=== PATIENT | female | born 1935 | race Caucasian/White ===

== ENCOUNTER 2018-11-14 21:31 | Emergency (ER) | payer MEDICARE ==
[~2018-11-14] VITALS: Ht 152.4 cm; Wt 59.9 kg
[~2018-11-14 21:31] MED LIST: EZET10; GABA100 PO; HYDACE5; HYDACE5325 PO; [UNRECOGNIZED DRUG - REMARK]
[2018-11-14] MEDS ORDERED: MELO7.5 PO (21:39)
[2018-11-14 22:06] LABS: BASOPHILS ABSOLUTE AUTO 0.01 K/mm3 (0.00-0.23); BASOPHILS PERCENT AUTO 0 % (0-2); EOSINOPHILS ABSOLUTE AUTO 0.07 K/mm3 (0.00-0.68); EOSINOPHILS PERCENT AUTO 1 % (0-6); Hematocrit 38.9 % (33.0-51.0); IMMATURE GRAN PERCENT AUTO 0 % (0-1); LYMPHOCYTES ABSOLUTE AUTO 2.08 K/mm3 (0.84-5.20); LYMPHOCYTES PERCENT AUTO 41 % (21-46); MONOCYTES ABSOLUTE AUTO 0.59 K/mm3 (0.16-1.47); MONOCYTES PERCENT AUTO 12 % (4-13); Mean Corpuscular HGB 27.6 pg (26.0-34.0); Mean Corpuscular HGB Conc 30.8 g/dL (31.5-36.5); Mean Corpuscular Volume 90 fL (80-100); Mean Platelet Volume 10.8 fL (9.1-12.4); NEUTROPHILS ABSOLUTE AUTO 2.35 K/mm3 (1.96-9.15); NEUTROPHILS PERCENT AUTO 46 % (41-73); Platelet Count 191 K/mm3 (150-400); RDW Coefficient Variation 18.1 % (11.7-14.2); RDW Standard Deviation 59.8 fL (35.1-46.3); Red Blood Cell Count 4.34 M/mm3 (3.80-5.20)
[2018-11-14 22:24] LABS: Alanine Aminotransfer (ALT/SGP 21 U/L (12-78); Albumin, Blood 3.4 g/dL (3.4-5.0); Albumin/Globulin Ratio 1.1 (0.8-1.8); Alk Phos 118 U/L (50-136); Anion Gap 6 mmol/L (6-16); Aspartate Aminotrans (AST/SGOT 17 U/L (12-37); Bilirubin, Total 0.5 mg/dL (0.1-1.0); Blood Urea Nitrogen 21 mg/dL (8-24); Bun/Creatinine Ratio 39.3 (12.0-20.0); CO2, Blood 26 mmol/L (21-32); Calcium, Blood 8.9 mg/dL (8.5-10.1); Chloride, Blood 110 mmol/L (98-108); Creatinine, Blood 0.54 mg/dL (0.40-1.00); Glomerular Filtration Rate >60 (60-); Glucose, Blood 91 mg/dL (70-99); Potassium, Blood 4.2 mmol/L (3.5-5.5); Sodium, Blood 142 mmol/L (136-145); Total Protein, Blood 6.4 g/dL (6.4-8.2)
[2018-11-14 22:41] LABS: Source, Urine Clean Catch
[2018-11-14 22:43] LABS: Bilirubin, Urine Neg (Neg); Blood, Urine 1+ (Neg); Glucose Qualitative, Urine Neg (Neg); Ketones, Urine Neg (Neg); Leukocyte Esterase, Urine 3+ (Neg); Nitrite, Urine Neg (Neg); Protein, Urine Neg (Neg); Specific Gravity, Urine 1.015 (1.003-1.022); Urobilinogen, Urine NORM (Normal); pH, Urine 6.5 (5.0-8.0)
[2018-11-14 22:44] LABS: Appearance, Urine Clear (Clear); Color, Urine Yellow (P-Yellow)
[2018-11-14 22:50] LABS: Red Blood Cells, Urine 0-2 /hpf (0-2); Squamous Epithelial Cells Rare /hpf (Few)
[2018-11-14 22:51] LABS: Bacteria Mod /hpf
[2018-11-14] MEDS ORDERED: CEPH500 PO (23:54)
== END 2018-11-15 00:05 | disposition home or self-care (01) ==
LOC: ER 21:31
PROVIDERS: Physician Assistant
DX: N39.0 Urinary tract infection, site not specified (principal); E87.8 Other disorders of electrolyte and fluid balance, not elsewhere classified; Z88.5 Allergy status to narcotic agent; Z88.8 Allergy status to other drugs, medicaments and biological substances; Z79.899 Other long term (current) drug therapy
CPT/HCPCS: 36415; 80053; 81001; 84484; 85025; 87086; 93005; 93010; 99284-25

== ENCOUNTER 2018-12-06 21:49 | Emergency (ER) | payer MEDICARE ==
[~2018-12-06] VITALS: Ht 152.4 cm; Wt 59.0 kg
[~2018-12-06 21:49] MED LIST changes: +CEPH500 PO; +MELO7.5 PO
[2018-12-06] MEDS ORDERED: HYDR1TAB94 PO (23:54)
[2018-12-07] MEDS ORDERED: CEPH500 PO (00:30)
== END 2018-12-07 00:44 | disposition home or self-care (01) ==
LOC: ER 21:49
DX: S01.81XA Laceration without foreign body of other part of head, initial encounter (principal); S60.221A Contusion of right hand, initial encounter; W18.30XA Fall on same level, unspecified, initial encounter; Z88.5 Allergy status to narcotic agent; Z88.8 Allergy status to other drugs, medicaments and biological substances
CPT/HCPCS: 73110; 90471; 90714; 99283-25; A9270; A9270-GY

== ENCOUNTER → 2019-01-16 | Outpatient (CLI) | payer MEDICARE ==
[~2019-01-16] MED LIST changes: +HYDR1TAB94 PO
[2019-01-18 13:37] LABS: Stool Occult Bld Immuno 1 Negative (NEGATIVE); Stool Occult Bld Immuno 2 Negative (NEGATIVE)
== END | disposition home or self-care (01) ==
LOC: LAB SHORT 08:45 → LAB 08:45 → OLS 08:45
PROVIDERS: Internal Medicine Gastroenterology
DX: D50.9 Iron deficiency anemia, unspecified (principal)
CPT/HCPCS: 82274

== ENCOUNTER 2019-01-24 15:56 | Observation (INO) | payer MEDICARE ==
[~2019-01-24] VITALS: Ht 152.4 cm; Wt 60.0 kg
[2019-01-24 16:55] LABS: BASOPHILS ABSOLUTE AUTO 0.01 K/mm3 (0.00-0.23); BASOPHILS PERCENT AUTO 0 % (0-2); EOSINOPHILS ABSOLUTE AUTO 0.09 K/mm3 (0.00-0.68); EOSINOPHILS PERCENT AUTO 2 % (0-6); Hematocrit 41.7 % (33.0-51.0); Hemoglobin 13.1 g/dL (11.5-16.0); IMMATURE GRAN ABSOLUTE AUTO 0.01 K/mm3 (0.00-0.10); IMMATURE GRAN PERCENT AUTO 0 % (0-1); LYMPHOCYTES ABSOLUTE AUTO 2.05 K/mm3 (0.84-5.20); LYMPHOCYTES PERCENT AUTO 38 % (21-46); MONOCYTES ABSOLUTE AUTO 0.44 K/mm3 (0.16-1.47); MONOCYTES PERCENT AUTO 8 % (4-13); Mean Corpuscular HGB 29.4 pg (26.0-34.0); Mean Corpuscular HGB Conc 31.4 g/dL (31.5-36.5); Mean Corpuscular Volume 94 fL (80-100); NEUTROPHILS PERCENT AUTO 52 % (41-73); Platelet Count 208 K/mm3 (150-400); RDW Coefficient Variation 14.9 % (11.7-14.2); RDW Standard Deviation 51.4 fL (35.1-46.3); Red Blood Cell Count 4.46 M/mm3 (3.80-5.20)
[2019-01-24 17:20] LABS: Troponin I <0.015 ng/mL (0.000-0.040)
[2019-01-24 17:27] LABS: Alanine Aminotransfer (ALT/SGP 21 U/L (12-78); Albumin, Blood 3.3 g/dL (3.4-5.0); Albumin/Globulin Ratio 1.1 (0.8-1.8); Alk Phos 117 U/L (50-136); Anion Gap 5 mmol/L (6-16); Aspartate Aminotrans (AST/SGOT 18 U/L (12-37); Bilirubin, Total 0.5 mg/dL (0.1-1.0); Blood Urea Nitrogen 24 mg/dL (8-24); Bun/Creatinine Ratio 36.5 (12.0-20.0); CO2, Blood 25 mmol/L (21-32); Calcium, Blood 9.1 mg/dL (8.5-10.1); Chloride, Blood 110 mmol/L (98-108); Creatinine, Blood 0.66 mg/dL (0.40-1.00); Globulin, Blood 2.9 g/dL (2.2-4.0); Glomerular Filtration Rate >60 (60-); Glucose, Blood 87 mg/dL (70-99); Potassium, Blood 4.3 mmol/L (3.5-5.5); Sodium, Blood 140 mmol/L (136-145); Total Protein, Blood 6.2 g/dL (6.4-8.2)
[2019-01-24] MEDS ORDERED: ADVIL LIQUI-GE200 MG PO (20:18)
[2019-01-24] MEDS ORDERED: ACET500 PO (20:27)
[2019-01-24] MEDS ORDERED: ASPI325EC PO (20:28)
[2019-01-24] MEDS ORDERED: D3-20002000 UNIT PO (21:37)
[2019-01-24] MEDS ORDERED: WOMEN'S 50 PLU1 EACH PO (21:40)
[2019-01-24] MEDS ORDERED: CURAMIN (21:40)
--- NOTE | 2019-01-24 23:22 | NUR ---
ARRIVAL NOTE PT ARRIVED TO UNIT VIA W.C, TRANSFERS INDEPENDENTLY TO BED. STEADY GAIT. DENIES CP AT THIS TIME. TELE PLACED ON PT, NSR @ 72 BPM. PT IS A&OX4, ORIENTED PT TO CALL LT AND ROOM. ADMISSION COMPLETE. SCDs IN PLACE. RESTING IN BED AT THIS TIME.
--- NOTE | 2019-01-25 05:28 | NUR ---
SHIFT SUMMARY NO CHEST PAIN OR DISCOMFORT OVERNIGHT. TELE IN PLACE, NSR IN THE 70s. PT AMBULATED INDEPENDENTLY IN ROOM, STEADY GAIT. USING HOME CPAP AT NIGHT, OTHERWISE TOLERATING RA. TRACE EDEMA TO BLE. PT TO HAVE ECHO LATER TODAY. C/O HIP PAIN, 650 MG PO TYLENOL ADMINISTERED AND PROVIDES RELIEF. WILL CONT TO MONITOR AND PROVIDE CARE UNTIL PRESUMED BY ONCOMING RN.
--- NOTE | 2019-01-25 16:53 | NUR ---
Shift Summary A/Ox4. Pleasant and cooperative lady, she has been independent in room and up to the bathroom. Calls appropriately. Pt is scheduled to have R/L heart cath tomorrow (01/26) and is to be NPO after midnight per Dr. Crystal, will pass onto receiving nurse. No other concerns at this time.
--- NOTE | 2019-01-26 05:40 | NUR ---
SHIFT SUMMARY NO ACUTE EVENTS OVERNIGHT. PT NPO SINCE MA FOR R+L HEART CATH PROCEDURE TODAY. PT INDEPENDENT IN RM. TELE IN PLACE; NO EVENTS; NSR @ 69 BPM PER O AND M SUPERVISOR. PT WEARING HOME CPAP T/O NIGHT. NO CP OR DISCOMFORT. WILL CONT TO MONITOR AND PROVIDE CARE UNTIL PRESUMED BY ONCOMING RN.
--- NOTE | 2019-01-26 06:52 | NUR ---
TRANSFER TO HEART CENTER PT TO HEART CENTER VIA W/C WITH RNs FOR HEART CATH PROCEDURE. NPO SINCE MN. PT BELONGINGS TAKEN WITH PT.
[2019-01-26] MEDS ORDERED: ASPI81CH PO (08:27)
--- NOTE | 2019-01-26 12:13 | NUR ---
PT DRESSED, IV DC'D INTACT, TR BAND REMOVED, DRESSING PLACED ALONG W R WRIST SPLINT. PT PREFERS NOT TO HAVE ARM SLING. DC'D BY WC BY THIS RN, SON DRIVING PT HOME. VSS
== END 2019-01-26 12:15 | disposition home or self-care (01) ==
LOC: ER 15:56 → MEDS 15:57 → SURS 21:22 → MEDS 21:29 → SURS 01-26 09:42
PROVIDERS: Physician Assistant; ADMIT Family Medicine
PROC: 4A023N8 Measurement of Cardiac Sampling and Pressure, Bilateral, Percutaneous Approach (ICD-10-PCS; principal; 2019-01-26)
PROC: B2111ZZ Fluoroscopy of Multiple Coronary Arteries using Low Osmolar Contrast (ICD-10-PCS; principal; 2019-01-26)
DX: R07.9 Chest pain, unspecified (principal); I25.10 Atherosclerotic heart disease of native coronary artery without angina pectoris; I35.0 Nonrheumatic aortic (valve) stenosis; I35.1 Nonrheumatic aortic (valve) insufficiency; I10 Essential (primary) hypertension; M19.90 Unspecified osteoarthritis, unspecified site; G89.29 Other chronic pain; D68.0 Von Willebrand disease; M25.561 Pain in right knee; M79.606 Pain in leg, unspecified; Z90.710 Acquired absence of both cervix and uterus; Z88.5 Allergy status to narcotic agent; Z88.8 Allergy status to other drugs, medicaments and biological substances; Z79.1 Long term (current) use of non-steroidal anti-inflammatories (NSAID); Z79.82 Long term (current) use of aspirin; Z79.899 Other long term (current) drug therapy
CPT/HCPCS: 36415; 71046; 80053; 83880; 84484; 85025; 93005; 93010; 93306; 93454; 99152; 99285-25; A9270; C1769; C1894; J1644; J2250; J3010; J7030; Q9967

== ENCOUNTER 2019-10-11 13:15 | Emergency (ER) | payer MEDICARE ==
[~2019-10-11] VITALS: Ht 152.4 cm; Wt 59.0 kg
[~2019-10-11 13:15] MED LIST changes: +ACET500 PO; +ADVIL LIQUI-GE200 MG PO; +ASPI325EC PO; +Aspirin EC81 MG PO; +CURAMIN; +MULTI VITAMIN1 EACH PO; +VITAMIN D31000 UNI1 PO
[2019-10-11 14:28] LABS: BASOPHILS ABSOLUTE AUTO 0.01 K/mm3 (0.00-0.23); BASOPHILS PERCENT AUTO 0 % (0-2); EOSINOPHILS ABSOLUTE AUTO 0.05 K/mm3 (0.00-0.68); EOSINOPHILS PERCENT AUTO 1 % (0-6); Hematocrit 36.7 % (33.0-51.0); Hemoglobin 11.1 g/dL (11.5-16.0); IMMATURE GRAN ABSOLUTE AUTO 0.02 K/mm3 (0.00-0.10); IMMATURE GRAN PERCENT AUTO 0 % (0-1); LYMPHOCYTES ABSOLUTE AUTO 1.41 K/mm3 (0.84-5.20); LYMPHOCYTES PERCENT AUTO 19 % (21-46); MONOCYTES ABSOLUTE AUTO 0.73 K/mm3 (0.16-1.47); MONOCYTES PERCENT AUTO 10 % (4-13); Mean Corpuscular HGB 28.1 pg (26.0-34.0); Mean Corpuscular HGB Conc 30.2 g/dL (31.5-36.5); Mean Corpuscular Volume 93 fL (80-100); NEUTROPHILS ABSOLUTE AUTO 5.15 K/mm3 (1.96-9.15); NEUTROPHILS PERCENT AUTO 70 % (41-73); Platelet Count 241 K/mm3 (150-400); RDW Coefficient Variation 13.9 % (11.7-14.2); RDW Standard Deviation 47.6 fL (35.1-46.3); Red Blood Cell Count 3.95 M/mm3 (3.80-5.20); White Blood Cell Count 7.37 K/mm3 (4.00-11.30)
[2019-10-11 14:56] LABS: Alanine Aminotransfer (ALT/SGP 21 U/L (12-78); Albumin, Blood 3.3 g/dL (3.4-5.0); Alk Phos 111 U/L (50-136); Anion Gap 5 mmol/L (6-16); Aspartate Aminotrans (AST/SGOT 17 U/L (12-37); Bilirubin, Total 0.8 mg/dL (0.1-1.0); Blood Urea Nitrogen 20 mg/dL (8-24); Bun/Creatinine Ratio 25.9 (12.0-20.0); CO2, Blood 26 mmol/L (21-32); Calcium, Blood 8.8 mg/dL (8.5-10.1); Chloride, Blood 108 mmol/L (98-108); Creatinine, Blood 0.77 mg/dL (0.40-1.00); Globulin, Blood 3.2 g/dL (2.2-4.0); Glomerular Filtration Rate >60 (60-); Glucose, Blood 92 mg/dL (70-99); Potassium, Blood 4.2 mmol/L (3.5-5.5); Sodium, Blood 139 mmol/L (136-145); Total Protein, Blood 6.5 g/dL (6.4-8.2); Troponin I <0.015 ng/mL (0.000-0.040)
[2019-10-11] MEDS ORDERED: AMIODARONE HCL200 MG PO (15:40)
[2019-10-11] MEDS ORDERED: FUROSEMIDE20 MG PO (15:40)
[2019-10-11] MEDS ORDERED: PLAVIX75 MG PO (15:40)
[2019-10-11] MEDS ORDERED: ATORVASTATIN CA20 MG PO (15:40)
[2019-10-11] MEDS ORDERED: METOPROLOL SUCC25 MG PO (15:40)
== END 2019-10-11 16:46 | disposition home or self-care (01) ==
LOC: ER 13:15
PROVIDERS: Emergency Medicine
DX: G89.18 Other acute postprocedural pain (principal); R07.9 Chest pain, unspecified; Z88.5 Allergy status to narcotic agent; Z88.8 Allergy status to other drugs, medicaments and biological substances; Z79.82 Long term (current) use of aspirin; Z79.899 Other long term (current) drug therapy; Z95.2 Presence of prosthetic heart valve
CPT/HCPCS: 36415; 71046; 80053; 83880; 84484; 85025; 86900; 86901; 93005; 93010; 99284-25

== ENCOUNTER → 2019-12-21 | Outpatient (CLI) | payer MEDICARE ==
[~2019-12-21] MED LIST changes: +AMIODARONE HCL200 MG PO; +ATORVASTATIN CA20 MG PO; +FUROSEMIDE20 MG PO; +METOPROLOL SUCC25 MG PO; +PLAVIX75 MG PO
[2019-12-22 14:08] LABS: Stool Occult Bld Immuno 1 Negative (NEGATIVE); Stool Occult Bld Immuno 2 Negative (NEGATIVE)
== END | disposition home or self-care (01) ==
LOC: LAB SHORT 09:00 → LAB 09:00
PROVIDERS: Internal Medicine Gastroenterology
DX: R10.12 Left upper quadrant pain (principal)
CPT/HCPCS: G0328

== ENCOUNTER 2020-09-04 13:42 | Day surgery (SDC) | payer MEDICARE ==
[~2020-09-04] VITALS: Ht 149.9 cm; Wt 58.7 kg
[~2020-09-04 13:42] MED LIST changes: +ASCO500 PO; +CLOP75 PO; +CURAMIN PO; +Crestor20 MG PO; +Diovan40 MG PO; +FERROUS GLUCON324 M7 PO; +LEVSOD25 PO; +NITR.4SL SL; +SUPER LYSINE PO; +TRAM50 PO; +VITAMIN B125000 MC1 PO; +VITAMIN D310 MC4 PO; +VITAMIN E PO; +Voltaren100 GM TOP; +ZENPEP DR 20,01 EACH PO; +ZINC15 PO; +[UNRECOGNIZED DRUG - OTHER] PO; +[UNRECOGNIZED DRUG - REMARK] TOP
--- NOTE | 2020-09-04 14:17 | NUR ---
09/04/20 1417 Emelyn Degroot FIRST ATTEMPT MISSED BY RN IN THE RIGHT FOREARM. SECOND ATTEMPT SUCCESSFUL IN THE RIGHT HAND BY RN. PT TOW. PATIENT TOLERATED THE SUTAB PREP.
== END 2020-09-04 15:35 | disposition home or self-care (01) ==
LOC: ORSCSDS 13:42
PROVIDERS: Internal Medicine Gastroenterology
PROC: 0DBH8ZX Excision of Cecum, Via Natural or Artificial Opening Endoscopic, Diagnostic (ICD-10-PCS; principal; 2020-09-04 14:45)
PROC: 0DBM8ZX Excision of Descending Colon, Via Natural or Artificial Opening Endoscopic, Diagnostic (ICD-10-PCS; principal; 2020-09-04 14:45)
DX: K62.5 Hemorrhage of anus and rectum (principal); D12.0 Benign neoplasm of cecum; D12.4 Benign neoplasm of descending colon; K57.30 Diverticulosis of large intestine without perforation or abscess without bleeding; K64.8 Other hemorrhoids; G47.33 Obstructive sleep apnea (adult) (pediatric); I25.10 Atherosclerotic heart disease of native coronary artery without angina pectoris; Z79.899 Other long term (current) drug therapy; Z79.82 Long term (current) use of aspirin; Z79.02 Long term (current) use of antithrombotics/antiplatelets
CPT/HCPCS: 88305; J2704; J7120

== ENCOUNTER 2020-10-03 00:59 | Day surgery (SDC) | payer MEDICARE ==
[~2020-10-03] VITALS: Wt 59.6 kg
[2020-10-03] MEDS ORDERED: ALEN10 PO (12:34)
[2020-10-03] MEDS ORDERED: TRAM50 PO (12:39)
[2020-10-03] MEDS ORDERED: CLOP75 PO (12:40)
== END 2020-10-03 10:20 | disposition home or self-care (01) ==
LOC: ATC 00:59
DX: D64.9 Anemia, unspecified (principal); I10 Essential (primary) hypertension; I25.10 Atherosclerotic heart disease of native coronary artery without angina pectoris; I35.0 Nonrheumatic aortic (valve) stenosis; I48.91 Unspecified atrial fibrillation; M81.0 Age-related osteoporosis without current pathological fracture; E78.00 Pure hypercholesterolemia, unspecified; Z79.82 Long term (current) use of aspirin; Z88.5 Allergy status to narcotic agent; Z88.8 Allergy status to other drugs, medicaments and biological substances; Z79.02 Long term (current) use of antithrombotics/antiplatelets
CPT/HCPCS: 96365; J2916

== ENCOUNTER 2020-10-10 02:05 | Day surgery (SDC) | payer MEDICARE ==
[~2020-10-10 02:05] MED LIST changes: +ALEN10 PO
== END 2020-10-10 10:50 | disposition home or self-care (01) ==
LOC: ATC 02:05
DX: D64.9 Anemia, unspecified (principal); I10 Essential (primary) hypertension; I25.10 Atherosclerotic heart disease of native coronary artery without angina pectoris; I48.91 Unspecified atrial fibrillation; G57.01 Lesion of sciatic nerve, right lower limb; Z95.2 Presence of prosthetic heart valve; Z96.652 Presence of left artificial knee joint; Z79.82 Long term (current) use of aspirin; Z79.02 Long term (current) use of antithrombotics/antiplatelets
CPT/HCPCS: 96365; J2916

== ENCOUNTER 2020-10-22 01:36 | Day surgery (SDC) | payer MEDICARE | END 2020-10-22 12:10 | disposition home or self-care (01) | LOC: ATC 01:36 | DX: D64.9 Anemia, unspecified (principal); I10 Essential (primary) hypertension; I25.10 Atherosclerotic heart disease of native coronary artery without angina pectoris; I48.91 Unspecified atrial fibrillation; M17.11 Unilateral primary osteoarthritis, right knee; Z96.652 Presence of left artificial knee joint; Z79.82 Long term (current) use of aspirin; Z95.2 Presence of prosthetic heart valve; Z79.02 Long term (current) use of antithrombotics/antiplatelets | CPT/HCPCS: 96365; J2916 ==

== ENCOUNTER 2020-11-08 02:09 | Day surgery (SDC) | payer MEDICARE | END 2020-11-08 11:55 | disposition home or self-care (01) | LOC: ATC 02:09 | DX: D64.9 Anemia, unspecified (principal); I10 Essential (primary) hypertension; I25.10 Atherosclerotic heart disease of native coronary artery without angina pectoris; J45.909 Unspecified asthma, uncomplicated; Z88.5 Allergy status to narcotic agent | CPT/HCPCS: 96365; J2916 ==

== ENCOUNTER 2020-11-14 01:21 | Day surgery (SDC) | payer MEDICARE | END 2020-11-14 12:09 | disposition home or self-care (01) | LOC: ATC 01:21 | DX: D64.9 Anemia, unspecified (principal); I10 Essential (primary) hypertension; I25.10 Atherosclerotic heart disease of native coronary artery without angina pectoris; I48.91 Unspecified atrial fibrillation; M17.11 Unilateral primary osteoarthritis, right knee; M81.0 Age-related osteoporosis without current pathological fracture; G25.81 Restless legs syndrome; Z79.82 Long term (current) use of aspirin; Z88.6 Allergy status to analgesic agent; Z88.5 Allergy status to narcotic agent; Z79.02 Long term (current) use of antithrombotics/antiplatelets; Z95.2 Presence of prosthetic heart valve | CPT/HCPCS: 96365; J2916 ==

== ENCOUNTER 2020-11-21 01:27 | Day surgery (SDC) | payer MEDICARE | END 2020-11-21 11:50 | disposition home or self-care (01) | LOC: ATC 01:27 | DX: D64.9 Anemia, unspecified (principal) | CPT/HCPCS: 96365; J2916 ==

== ENCOUNTER 2021-05-14 08:44 | Day surgery (SDC) | payer MEDICARE ==
[~2021-05-14] VITALS: Ht 147.3 cm; Wt 60.0 kg
[~2021-05-14 08:44] MED LIST changes: +COMPOUNDING TOP
[2021-05-14] MEDS ORDERED: LEVOTHYROXINE PO (09:24)
[2021-05-14] MEDS ORDERED: FURO20 PO (09:25)
--- NOTE | 2021-05-14 10:07 | NUR ---
PT ARRIVED WITH SON WENDI REYNOLDS. HE LEFT WHEN PT STARTED CHANGING. PT VERY PLEASANT. Patient up to Ambulate independently. Gait A BIT UNSTEADY, RN AT SIDE. History, Chart, Medications and Allergies reviewed before start of procedure. Lungs clear T/O to Auscultation. Patient confirms NPO status and agrees with scheduled surgery. Pre-Op teaching done. Pt verbalizes understanding.
--- NOTE | 2021-05-14 17:20 | NUR ---
POST OP: REPORT RECEIVED FROM AMBER, HYDROELECTRIC OPERATOR. PT TO ROOM AT ABOUT 1415. PT IS A/O, HTN NOTED, OTHERWISE VSS. PT REPORTS PAIN 5/10 AND RISING. MEDICATED PER EMAR. SURGICAL SITE WNL. WILL CTM
--- NOTE | 2021-05-14 17:24 | NUR ---
SUMMARY: NO ACUTE CHANGE SINCE POST OP. VSS, PT REPORTS PAIN IS BETTER AND MANAGED WITH 10MG OXYCODONE. PT HOME CPAP SET UP AT BEDSIDE, SEE ORDERS. PT ABLE TO WALK TO ROOM DOOR AND BACK WITH THERAPY. WAS A LITTLE NAUSEATED WITH MOVEMENT AND GIVEN ZOFRAN. NO SAFETY CONCERNS CURRENTLY, PT NOW RECLINED IN CHAIR WITH POLAR PAC AND KNEE ELEVATED. WILL CTM AND REPORT TO MAUREEN TANG.
[2021-05-15 04:31] LABS: BASOPHILS ABSOLUTE AUTO 0.01 K/mm3 (0.00-0.23); BASOPHILS PERCENT AUTO 0 % (0-2); EOSINOPHILS ABSOLUTE AUTO 0.01 K/mm3 (0.00-0.68); EOSINOPHILS PERCENT AUTO 0 % (0-6); Hematocrit 37.5 % (33.0-51.0); Hemoglobin 11.8 g/dL (11.5-16.0); IMMATURE GRAN ABSOLUTE AUTO 0.04 K/mm3 (0.00-0.10); IMMATURE GRAN PERCENT AUTO 1 % (0-1); LYMPHOCYTES ABSOLUTE AUTO 1.32 K/mm3 (0.84-5.20); LYMPHOCYTES PERCENT AUTO 16 % (21-46); MONOCYTES ABSOLUTE AUTO 0.75 K/mm3 (0.16-1.47); MONOCYTES PERCENT AUTO 9 % (4-13); Mean Corpuscular HGB 30.2 pg (26.0-34.0); Mean Corpuscular HGB Conc 31.5 g/dL (31.5-36.5); Mean Corpuscular Volume 96 fL (80-100); Mean Platelet Volume 11.3 fL (9.1-12.4); NEUTROPHILS ABSOLUTE AUTO 6.26 K/mm3 (1.96-9.15); NEUTROPHILS PERCENT AUTO 75 % (41-73); Platelet Count 129 K/mm3 (150-400); RDW Coefficient Variation 14.4 % (11.7-14.2); RDW Standard Deviation 50.1 fL (35.1-46.3); Red Blood Cell Count 3.91 M/mm3 (3.80-5.20); White Blood Cell Count 8.39 K/mm3 (4.00-11.30)
--- NOTE | 2021-05-15 04:35 | NUR ---
BRACELET AND BROOCH MAKER SUMMARY PT AAOX4 AND PLEASANT. HAS AMBULATED WITH FWW AND MINIMAL ASSIST TO THE BATHROOM MULTIPLE TIMES TONIGHT. FULL SENSATION IN BLE, DENIES N/T. MEDICATED FOR PAIN PER EMAR TONIGHT. PT STATED SHE NOTICED SOME NAUSEA/ABD PAIN NOT LONG AFTER HER DOSES OF TORADOL AND REQUESTED TO HOLD OFF ON HER 0600 DOSE THIS AM TO SEE IF SYMPTOMS IMPROVED. MEDICATED FOR NAUSEA X1 WITH ZOFRAN. VSS, WILL CONTINUE TO MONITOR.
[2021-05-15 04:52] LABS: Anion Gap 7 mmol/L (6-16); Blood Urea Nitrogen 18 mg/dL (8-24); Bun/Creatinine Ratio 27.9 (12.0-20.0); CO2, Blood 28 mmol/L (21-32); Calcium, Blood 8.9 mg/dL (8.5-10.1); Chloride, Blood 103 mmol/L (98-108); Creatinine, Blood 0.65 mg/dL (0.40-1.00); Glomerular Filtration Rate >60 (60-); Glucose, Blood 150 mg/dL (70-99); Magnesium, Blood 1.8 mg/dL (1.6-2.4); Potassium, Blood 4.5 mmol/L (3.5-5.5); Sodium, Blood 138 mmol/L (136-145)
--- NOTE | 2021-05-15 16:17 | NUR ---
1500 discharged to home with son. pt and her son verbalize understanding of discharge instructions. pt provided with aquacel dressings and polar pack.
== END 2021-05-15 15:00 | disposition home or self-care (01) ==
LOC: ORSCMMR 08:44 → ORD 10:45 → SURS 14:13 → ORSCMMR 05-15 15:00
PROVIDERS: Orthopaedic Surgery
DX: M17.11 Unilateral primary osteoarthritis, right knee (principal); G47.33 Obstructive sleep apnea (adult) (pediatric); I48.0 Paroxysmal atrial fibrillation; E03.9 Hypothyroidism, unspecified; Z79.899 Other long term (current) drug therapy; Z79.82 Long term (current) use of aspirin
CPT/HCPCS: 36415; 73560-RT; 80048; 83735; 85025; 97110; 97116; 97162; A9270; C1713; C1776; J0171; J0690; J0735; J1885; J2370; J2405; J2704; J2795; J3010; J3370; J7050; J7120

== ENCOUNTER 2021-05-16 05:48 | Emergency (ER) | payer MEDICARE ==
[~2021-05-16] VITALS: Ht 149.9 cm; Wt 58.1 kg
[~2021-05-16 05:48] MED LIST changes: +FURO20 PO; +LEVOTHYROXINE PO
== END 2021-05-16 08:32 | disposition home or self-care (01) ==
LOC: ER 05:48
DX: G89.18 Other acute postprocedural pain (principal); M25.561 Pain in right knee; Z88.5 Allergy status to narcotic agent; Z88.8 Allergy status to other drugs, medicaments and biological substances; Z88.6 Allergy status to analgesic agent; Z79.82 Long term (current) use of aspirin; Z79.899 Other long term (current) drug therapy; Z96.641 Presence of right artificial hip joint; Z96.651 Presence of right artificial knee joint
CPT/HCPCS: 93971; 96372; 99283-25; A9270; J3010

== ENCOUNTER 2021-06-04 19:33 | Inpatient (IN) | payer MEDICARE ==
[~2021-06-04] VITALS: Ht 149.9 cm; Wt 57.1 kg
[2021-06-04 20:22] LABS: BASOPHILS ABSOLUTE AUTO 0.01 K/mm3 (0.00-0.23); BASOPHILS PERCENT AUTO 0 % (0-2); EOSINOPHILS PERCENT AUTO 1 % (0-6); Hematocrit 41.2 % (33.0-51.0); Hemoglobin 12.9 g/dL (11.5-16.0); IMMATURE GRAN ABSOLUTE AUTO 0.03 K/mm3 (0.00-0.10); IMMATURE GRAN PERCENT AUTO 0 % (0-1); LYMPHOCYTES ABSOLUTE AUTO 1.64 K/mm3 (0.84-5.20); LYMPHOCYTES PERCENT AUTO 24 % (21-46); MONOCYTES ABSOLUTE AUTO 0.62 K/mm3 (0.16-1.47); MONOCYTES PERCENT AUTO 9 % (4-13); Mean Corpuscular HGB Conc 31.3 g/dL (31.5-36.5); Mean Corpuscular Volume 96 fL (80-100); Mean Platelet Volume 10.5 fL (9.1-12.4); NEUTROPHILS PERCENT AUTO 65 % (41-73); Platelet Count 316 K/mm3 (150-400); RDW Coefficient Variation 15.4 % (11.7-14.2)
[2021-06-04 20:36] LABS: C-REACTIVE PROTEIN, EXT RANGE 3.04 mg/dL (0.000-0.300)
[2021-06-04 20:38] LABS: Albumin, Blood 3.6 g/dL (3.4-5.0); Bilirubin, Total 0.5 mg/dL (0.1-1.0); Bun/Creatinine Ratio 16.7 (12.0-20.0); Calcium, Blood 9.9 mg/dL (8.5-10.1); Creatinine, Blood 1.02 mg/dL (0.40-1.00); Globulin, Blood 3.5 g/dL (2.2-4.0); Potassium, Blood 4.8 mmol/L (3.5-5.5); Total Protein, Blood 7.1 g/dL (6.4-8.2)
--- NOTE | 2021-06-05 05:42 | NUR ---
HOME INSURANCE AGENT SUMMARY NEW ADMIT FROM THE ED TONIGHT. PT AAOX4 AND PLEASANT. STANDBY ASSIST W/ WALKER. REDNESS AND SWELLING NOTED TO R KNEE, PT HAD TKA ON 05/14. MEDICATED WITH OXYCODONE X1 AND THEN 25 MCG FENTANYL X1 FOR BREAKTHROUGH PAIN. VSS, WILL CONTINUE TO MONITOR.
[2021-06-05 10:57] LABS: Vancomycin, Random 6.3 ug/mL
--- NOTE | 2021-06-05 11:36 | NUR ---
Pt. is in bed and awake. Pt. welcomes my visit. Pt. was just seen by Dr. Staton as he did rounds. Pt. is unsettled by the pain experience from infection after a recent knee surgery. Pt. becomes cathartic as she shares the long path of chronic pain that preceded this procedure. Provide pastoral care through empathetic and theraputic listening. Pt. also displayed spiritual distress because of broken family unit complications. Provided a calming presence and offered emotional support. Pt. displayed evidence of catharsis, diminished anger, and reduced stress. Prayed for pt. Pt. in return prayed for this off premise service representative. Pt. verbalized gratitude for the spiritual care visit.
--- NOTE | 2021-06-05 15:18 | NUR ---
SUMMARY PT RIGHT KNEE REMAINS RED, SWOLLEN AND TENDER, NO DRAINAGE PT UP TO COMMODE WITH WALKER. PAIN REPORTED AT 7-9/10 BUT PT REPORTS PAIN HAS LESSENED AND IS ABLE TO NAP OFF AND ON. ICE IN PLACE TO RIGHT KNEE. PT AWAE OF NPO AFTER MIDNO FOR POSSIBLE OR TOMORROW.
--- NOTE | 2021-06-05 18:12 | NUR ---
SHIFT SUMMARY TOOK OVER CARE 1600, PT A&OX4, VSS/RA, REP PAIN MANAGED WELL WITH 10 NORCO CURRENTLY 07/22. PT DENIES ALLERGY, REP HAS NAUSEA WITH HYDROCODONE, BUT DENIES N&V AT THIS TIME AND AYLIN PO DINNER. PT RESTING COMFORTABLY WITH SCDS ON, ICE ON RKNEE. PT REP UNDERSTANDING SHE WILL BE NPO MIDNIGHT FOR POSS O/R I&D TOMORROW. WILL REPORT TO ONCOMING NOC RN.
--- NOTE | 2021-06-06 05:10 | NUR ---
PT IS A&O, AMBULATES TO WITH PERSONAL WALKER. COMPLAINS OF PAIN FROM KNEE, HAS BEEN RECEIVING NORCO 10MG UNTIL MIDNIGHT D/T NPO STATUS. PT WOKE AT 0430 COMPLAINING OF PAIN, IV FENTANYL GIVEN. PT IS TO HAVE I&D PERFORMED THIS MORNING FOR RECENT KNEE REPLACEMENT AND INFECTION. PT BECAME CONFUSED A COUPLE OF TIMES DURING THE NIGHT BUT WAS EASY TO REOIRENT. WILL CONTINUE TO MONITOR THIS PATIENT.
--- NOTE | 2021-06-06 07:11 | NUR ---
PATIENT OUT OF ROOM TO OR
--- NOTE | 2021-06-06 07:17 | NUR ---
History, Chart, Medications and Allergies reviewed before start of procedure. Lungs clear T/O to Auscultation. Patient confirms NPO status and agrees with scheduled surgery. Pre-Op teaching done. Pt verbalizes understanding.
[2021-06-06 09:03] LABS: BODY FLUID RBC 0.013 M/mm3 (0-0); RBC Count, Synovial Fluid 13000 /mm3 (0-0)
[2021-06-06 09:44] LABS: Body Fluid Crystals POS (NEGATIVE)
[2021-06-06 10:08] LABS: WBC Count, Synovial Fluid 12840 /mm3 (0-180)
[2021-06-06 10:20] LABS: Automated BF RBC Count 0.155 M/mm3 (0-0); RBC Count, Body Fluid 155000 /mm3 (0-0)
[2021-06-06 11:06] LABS: Body Fluid WBC Count 71000 /mm3 (0-999)
[2021-06-06 11:06] LABS: BASOPHILS ABSOLUTE AUTO 0.02 K/mm3 (0.00-0.23); BASOPHILS PERCENT AUTO 0 % (0-2); EOSINOPHILS ABSOLUTE AUTO 0.01 K/mm3 (0.00-0.68); EOSINOPHILS PERCENT AUTO 0 % (0-6); Hematocrit 39.8 % (33.0-51.0); Hemoglobin 12.4 g/dL (11.5-16.0); IMMATURE GRAN ABSOLUTE AUTO 0.03 K/mm3 (0.00-0.10); IMMATURE GRAN PERCENT AUTO 0 % (0-1); LYMPHOCYTES PERCENT AUTO 11 % (21-46); MONOCYTES ABSOLUTE AUTO 0.13 K/mm3 (0.16-1.47); MONOCYTES PERCENT AUTO 2 % (4-13); Mean Corpuscular HGB 30.4 pg (26.0-34.0); Mean Corpuscular HGB Conc 31.2 g/dL (31.5-36.5); Mean Corpuscular Volume 98 fL (80-100); Mean Platelet Volume 10.6 fL (9.1-12.4); NEUTROPHILS ABSOLUTE AUTO 7.76 K/mm3 (1.96-9.15); NEUTROPHILS PERCENT AUTO 87 % (41-73); Platelet Count 274 K/mm3 (150-400); RDW Coefficient Variation 15.3 % (11.7-14.2); RDW Standard Deviation 54.9 fL (35.1-46.3); Red Blood Cell Count 4.08 M/mm3 (3.80-5.20); White Blood Cell Count 8.95 K/mm3 (4.00-11.30)
--- NOTE | 2021-06-06 11:07 | NUR ---
1035 RETURNED TO ROOM FROM OR
[2021-06-06 11:23] LABS: Anion Gap 7 mmol/L (6-16); Blood Urea Nitrogen 10 mg/dL (8-24); Bun/Creatinine Ratio 15.8 (12.0-20.0); CO2, Blood 26 mmol/L (21-32); Calcium, Blood 9.3 mg/dL (8.5-10.1); Chloride, Blood 107 mmol/L (98-108); Creatinine, Blood 0.63 mg/dL (0.40-1.00); Glomerular Filtration Rate >60 (60-); Glucose, Blood 148 mg/dL (70-99); Potassium, Blood 4.3 mmol/L (3.5-5.5); Sodium, Blood 140 mmol/L (136-145)
[2021-06-06 11:41] LABS: Creatinine, Blood 0.71 mg/dL (0.40-1.00); Glomerular Filtration Rate >60 (60-); Vancomycin, Random 6.1 ug/mL
--- NOTE | 2021-06-06 12:38 | NUR ---
1200 post op vitals delayed as PICC line being placed
--- NOTE | 2021-06-06 12:47 | NUR ---
SPOKE WITH JERI GOMES RN REGARDING PICC LINE. RN UNABLE TO PLACE PICC AT THIS TIME
[2021-06-06 13:13] LABS: Lymphs, Synovial Fluid 8 % (0-15); Monocytes/Macrophages, Synovia 8 % (0-65); Neutrophils, Synovial Fluid 84 % (0-24)
[2021-06-06 13:16] LABS: Total Cell Count, Body Fluid 100
[2021-06-06 13:17] LABS: Appearance, Body Fluid Cloudy (Clear); Color, Body Fluid Amber (None-Yellow)
[2021-06-06 13:20] LABS: Appearance, Synovial Fluid Hazy (Clear); Color, Synovial Fluid Yellow (None-P Yel)
--- NOTE | 2021-06-06 17:29 | NUR ---
PT REPORTS RIGHT KNEE, THIGH, THROAT PAIN AND PAIN TO RIGHT GREAT TOE AT 7-10/10, TEARFUL AT TIMES. PT SLEEPING WITH EVEN UNLABORED, SNORING RESPIRATIONS FOR MUCH OF THE AFTERNOON. WHEN PT AWAKENED IS TEARFUL AT TIMES AND STATES SHE HAS NEVER HAD PAIN THIS BAD.
--- NOTE | 2021-06-07 04:05 | NUR ---
PT IS A&O, VSS AND IS ABLE TO MAKE NEEDS KNOWN. POST OF DAY 1 FOR I&D OF THE RIGHT KNEE, RECENT RIGHT TKA (05/14). PAIN CONTROL ISSUES THIS SHIFT, PT TEARFUL STATING THAT SHE "DOESN'T KNOW WHAT TO DO." ALSO STATES THAT HER KNEE SPASMS AND IS CAUSING PAIN. GILBERT 10MG GIVEN Q4. PT ABLE TO SLEEP AT TIMES. PT IS A SBA TO [facility] [place]ING PERSONAL 4WW. WILL CONTINUE TO MONITOR THIS PT FOR ANY ACUTE CHANGES.
[2021-06-07 04:14] LABS: BASOPHILS ABSOLUTE AUTO 0.01 K/mm3 (0.00-0.23); BASOPHILS PERCENT AUTO 0 % (0-2); EOSINOPHILS PERCENT AUTO 0 % (0-6); Hematocrit 34.2 % (33.0-51.0); Hemoglobin 10.7 g/dL (11.5-16.0); IMMATURE GRAN ABSOLUTE AUTO 0.03 K/mm3 (0.00-0.10); IMMATURE GRAN PERCENT AUTO 0 % (0-1); LYMPHOCYTES ABSOLUTE AUTO 1.65 K/mm3 (0.84-5.20); LYMPHOCYTES PERCENT AUTO 17 % (21-46); MONOCYTES ABSOLUTE AUTO 0.85 K/mm3 (0.16-1.47); MONOCYTES PERCENT AUTO 9 % (4-13); Mean Corpuscular HGB 29.8 pg (26.0-34.0); Mean Corpuscular HGB Conc 31.3 g/dL (31.5-36.5); Mean Corpuscular Volume 95 fL (80-100); Mean Platelet Volume 11.1 fL (9.1-12.4); NEUTROPHILS ABSOLUTE AUTO 6.96 K/mm3 (1.96-9.15); NEUTROPHILS PERCENT AUTO 73 % (41-73); Platelet Count 240 K/mm3 (150-400); RDW Coefficient Variation 15.1 % (11.7-14.2); RDW Standard Deviation 52.1 fL (35.1-46.3); Red Blood Cell Count 3.59 M/mm3 (3.80-5.20)
[2021-06-07 04:33] LABS: Anion Gap 6 mmol/L (6-16); Blood Urea Nitrogen 17 mg/dL (8-24); Bun/Creatinine Ratio 22.9 (12.0-20.0); CO2, Blood 25 mmol/L (21-32); Calcium, Blood 9.4 mg/dL (8.5-10.1); Chloride, Blood 106 mmol/L (98-108); Creatinine, Blood 0.74 mg/dL (0.40-1.00); Glomerular Filtration Rate >60 (60-); Glucose, Blood 111 mg/dL (70-99); Potassium, Blood 4.6 mmol/L (3.5-5.5); Sodium, Blood 137 mmol/L (136-145)
--- NOTE | 2021-06-07 08:34 | NUR ---
THERAPY: PT IN ROOM TO WORK TO MOBILIZE PATIENT. PT MEDICATED FOR PAIN WITH AM MEDS. WILL MONITOR PROGRESS.
[2021-06-07 12:37] LABS: Vancomycin, Trough 8.7 ug/mL (5.0-10.0)
--- NOTE | 2021-06-07 18:51 | NUR ---
pt has been stable this shift. pod #1 I+D. afebrile. dressing to right knee cdi, changed per doctor orders. pt has been ambulating well, sba oob. pain controlled with scheduled toradol and tylenol and prn roxicodone. pt voiding well on bsc. pt has had several bm's after suppository this afternoon. AYLIN DIET. PT NEEDS PICC LINE PLACED, NO RN AVAILABLE THIS SHIFT. PLAN FOR SNF AT DISCHARGE. CALLS APPROPRIATELY NEEDED.
--- NOTE | 2021-06-07 22:41 | NUR ---
PILL FOUND IN PILL CUP ON PT'S BEDSIDE TABLE. PT STATES SHE DOES NOT KNOW WHAT THE PILL IS. PILL SENT TO PHARMACY FOR IDENTIFICATION, WAS IDENTIFIED TO BE METOPROLOL 25 MG. ON-CALL PHYSICIAN NOTIFIED, ORDER TO RESUME MEDICATION AT NEXT SCHEDULED DOSE.
[2021-06-08 09:18] LABS: BASOPHILS ABSOLUTE AUTO 0.01 K/mm3 (0.00-0.23); BASOPHILS PERCENT AUTO 0 % (0-2); EOSINOPHILS PERCENT AUTO 2 % (0-6); Hematocrit 34.2 % (33.0-51.0); Hemoglobin 10.6 g/dL (11.5-16.0); IMMATURE GRAN ABSOLUTE AUTO 0.01 K/mm3 (0.00-0.10); IMMATURE GRAN PERCENT AUTO 0 % (0-1); LYMPHOCYTES ABSOLUTE AUTO 0.89 K/mm3 (0.84-5.20); LYMPHOCYTES PERCENT AUTO 17 % (21-46); MONOCYTES ABSOLUTE AUTO 0.44 K/mm3 (0.16-1.47); MONOCYTES PERCENT AUTO 8 % (4-13); Mean Corpuscular HGB 29.9 pg (26.0-34.0); Mean Corpuscular Volume 97 fL (80-100); Mean Platelet Volume 10.9 fL (9.1-12.4); NEUTROPHILS ABSOLUTE AUTO 3.89 K/mm3 (1.96-9.15); NEUTROPHILS PERCENT AUTO 73 % (41-73); Platelet Count 198 K/mm3 (150-400); RDW Coefficient Variation 14.9 % (11.7-14.2); RDW Standard Deviation 53.1 fL (35.1-46.3); Red Blood Cell Count 3.54 M/mm3 (3.80-5.20); White Blood Cell Count 5.34 K/mm3 (4.00-11.30)
[2021-06-08 09:30] LABS: Anion Gap 4 mmol/L (6-16); Blood Urea Nitrogen 15 mg/dL (8-24); Bun/Creatinine Ratio 23.5 (12.0-20.0); CO2, Blood 29 mmol/L (21-32); Calcium, Blood 9.2 mg/dL (8.5-10.1); Chloride, Blood 109 mmol/L (98-108); Creatinine, Blood 0.64 mg/dL (0.40-1.00); Glomerular Filtration Rate >60 (60-); Glucose, Blood 95 mg/dL (70-99); Potassium, Blood 4.5 mmol/L (3.5-5.5); Sodium, Blood 142 mmol/L (136-145)
--- NOTE | 2021-06-08 18:42 | NUR ---
PATIENT UP IN CHAIR MOST OF SHIFT, TOLERATE WELL. UP TO COMMODE FREQUENTLY, STATES THAT IS NORMAL FOR HER. REQUESTING ZOFRAN THIS EVENING AND MOM, GIVEN.STATES IT IS MILD NAUSEA. APPETITE TODAY ,HOWEVER HAS BEEN GOOD. DRESSING CHANGD TO LEFT KNEE DONE THIS A.M., INCISION RED WITH SUTURES INTACT, NO DRAINAGE, WELL APPROXIMATED. MT WRAP TO COVER.
[2021-06-09 04:40] LABS: BASOPHILS ABSOLUTE AUTO 0.01 K/mm3 (0.00-0.23); BASOPHILS PERCENT AUTO 0 % (0-2); EOSINOPHILS ABSOLUTE AUTO 0.14 K/mm3 (0.00-0.68); EOSINOPHILS PERCENT AUTO 3 % (0-6); Hematocrit 35.9 % (33.0-51.0); Hemoglobin 11.1 g/dL (11.5-16.0); IMMATURE GRAN ABSOLUTE AUTO 0.01 K/mm3 (0.00-0.10); IMMATURE GRAN PERCENT AUTO 0 % (0-1); LYMPHOCYTES ABSOLUTE AUTO 1.57 K/mm3 (0.84-5.20); LYMPHOCYTES PERCENT AUTO 32 % (21-46); MONOCYTES PERCENT AUTO 10 % (4-13); Mean Corpuscular HGB 29.8 pg (26.0-34.0); Mean Corpuscular HGB Conc 30.9 g/dL (31.5-36.5); Mean Corpuscular Volume 97 fL (80-100); Mean Platelet Volume 10.6 fL (9.1-12.4); NEUTROPHILS ABSOLUTE AUTO 2.72 K/mm3 (1.96-9.15); NEUTROPHILS PERCENT AUTO 55 % (41-73); Platelet Count 218 K/mm3 (150-400); RDW Coefficient Variation 14.8 % (11.7-14.2); Red Blood Cell Count 3.72 M/mm3 (3.80-5.20); White Blood Cell Count 4.95 K/mm3 (4.00-11.30)
--- NOTE | 2021-06-09 04:47 | NUR ---
SUMMARY NO NEW ISSUES NOTED. PT PAIN MANAGED WELL DURING SHIFT. PT HAS BEEN VOIDING WELL AND USING BSC WITHOUT ISSUE. PT HAS BEEN SLEEPING WELL DURING SHIFT. BED ALARM ON AND CALL LIGHT IN REACH.
[2021-06-09 05:04] LABS: Anion Gap 3 mmol/L (6-16); Blood Urea Nitrogen 14 mg/dL (8-24); Bun/Creatinine Ratio 22.7 (12.0-20.0); CO2, Blood 32 mmol/L (21-32); Calcium, Blood 9.3 mg/dL (8.5-10.1); Chloride, Blood 107 mmol/L (98-108); Creatinine, Blood 0.62 mg/dL (0.40-1.00); Glomerular Filtration Rate >60 (60-); Glucose, Blood 97 mg/dL (70-99); Potassium, Blood 4.5 mmol/L (3.5-5.5); Sodium, Blood 142 mmol/L (136-145)
[2021-06-09 11:25] LABS: Vancomycin, Trough 10.1 ug/mL (5.0-10.0)
--- NOTE | 2021-06-09 17:14 | NUR ---
SHIFT SUMMARY PATIENT ALERT AND ORIENTED THROUGHOUT SHIFT. TOLERATING REGULAR DIET AND FLUIDS. SBA WITH FWW AND GAIT BELT. DRESSING TO RIGHT KNEE CHANGED THIS SHIFT. PICC PLACED THIS SHIFT. PLAN TO DISCHARGE TO [facility] IN AM 06/10/21.
--- NOTE | 2021-06-10 04:40 | NUR ---
SHIFT SUMMARY NO ACUTE CHANGES THIS SHIFT. RIGHT KNEE DRESSING REMAINS CDI. PERCOCET/TYLENOL/MOTRIN FOR PAIN MANAGEMENT. 1 SBA WITH WALKER WHEN OOB. PLAN FOR PT TO DC TO SNF TODAY. USES CALL LIGHT APPROPRIATELY.
[2021-06-10 05:01] LABS: BASOPHILS ABSOLUTE AUTO 0.01 K/mm3 (0.00-0.23); BASOPHILS PERCENT AUTO 0 % (0-2); EOSINOPHILS ABSOLUTE AUTO 0.14 K/mm3 (0.00-0.68); EOSINOPHILS PERCENT AUTO 3 % (0-6); Hematocrit 34.1 % (33.0-51.0); Hemoglobin 10.6 g/dL (11.5-16.0); IMMATURE GRAN ABSOLUTE AUTO 0.01 K/mm3 (0.00-0.10); IMMATURE GRAN PERCENT AUTO 0 % (0-1); LYMPHOCYTES ABSOLUTE AUTO 1.24 K/mm3 (0.84-5.20); LYMPHOCYTES PERCENT AUTO 29 % (21-46); MONOCYTES PERCENT AUTO 12 % (4-13); Mean Corpuscular HGB 29.9 pg (26.0-34.0); Mean Corpuscular HGB Conc 31.1 g/dL (31.5-36.5); Mean Corpuscular Volume 96 fL (80-100); Mean Platelet Volume 10.9 fL (9.1-12.4); NEUTROPHILS ABSOLUTE AUTO 2.32 K/mm3 (1.96-9.15); NEUTROPHILS PERCENT AUTO 55 % (41-73); Platelet Count 196 K/mm3 (150-400); RDW Coefficient Variation 14.7 % (11.7-14.2); RDW Standard Deviation 52.6 fL (35.1-46.3); Red Blood Cell Count 3.54 M/mm3 (3.80-5.20); White Blood Cell Count 4.22 K/mm3 (4.00-11.30)
[2021-06-10 05:37] LABS: Alanine Aminotransfer (ALT/SGP 19 U/L (12-78); Albumin, Blood 2.5 g/dL (3.4-5.0); Albumin/Globulin Ratio 0.9 (0.8-1.8); Alk Phos 108 U/L (50-136); Anion Gap 2 mmol/L (6-16); Aspartate Aminotrans (AST/SGOT 14 U/L (12-37); Bilirubin, Total 0.7 mg/dL (0.1-1.0); Blood Urea Nitrogen 15 mg/dL (8-24); Bun/Creatinine Ratio 24.7 (12.0-20.0); CO2, Blood 31 mmol/L (21-32); Calcium, Blood 8.9 mg/dL (8.5-10.1); Chloride, Blood 107 mmol/L (98-108); Creatinine, Blood 0.61 mg/dL (0.40-1.00); Globulin, Blood 2.8 g/dL (2.2-4.0); Glomerular Filtration Rate >60 (60-); Glucose, Blood 108 mg/dL (70-99); Potassium, Blood 4.2 mmol/L (3.5-5.5); Sodium, Blood 140 mmol/L (136-145); Total Protein, Blood 5.3 g/dL (6.4-8.2)
--- NOTE | 2021-06-10 18:09 | NUR ---
SHIFT SUMMARY PT IS DOING WELL w/ MOBILITY. UP TO BATHROOM SEVERAL TIMES. SMALL BM BUT PT WISHING FOR LARGER BM. SNACKING & TAKING IN PO FLUIDS WELL BUT DECREASE IN APPETITE. DRSG CHANGED w/ VERY SCANT DRY DRNG NOTED. IV ABX INFUSED.
--- NOTE | 2021-06-10 18:36 | NUR ---
Pt. is up out of her bed with a walker. Pt. welcomes my visit. Pt. is in a pleasant mood with only slight unsettledness regarding her discharge to [facility]. Listen empathetically. Pt. disaplays evidence of understanding the complexities of her car, and verbalizes gratitude for the special efforts given my the staff, particularly Андрей from ICU, who successfully established a pic line. Prayed with Pt. Pt. displayed evidence of encouragement and hope. Prayed with Pt. Pt. verbalized gratitude for the spiritual care visit and pastoral prayer.
--- NOTE | 2021-06-11 04:57 | NUR ---
SHIFT SUMMARY A/O X4. VSS. USING WALKER IN RM TO AMBULATE TO THE BATHROOM. MT WRAP TO R KNEE, C/D/I. PAIN MANAGED WITH PO PAIN MEDICATION. TOLERATING LITTLE AMOUNTS OF PO INTAKE. VOIDING AND PASSING STOOL. COOPERATIVE WITH CARE. WILL CONTINUE TO MONITOR AND REPORT TO ONCOMING RN.
[2021-06-11 12:59] LABS: Vancomycin, Trough 9.7 ug/mL (5.0-10.0)
--- NOTE | 2021-06-11 18:37 | NUR ---
SHIFT SUMMARY PT HAS BEEN PLEASANT & UPBEAT TODAY. HAS HAD BM x 2 & REPORTS FEELING BETTER. AMBULATED IN HALLWAYS x 2. PAIN WELL MANAGED.
[2021-06-12 04:19] LABS: BASOPHILS ABSOLUTE AUTO 0.02 K/mm3 (0.00-0.23); BASOPHILS PERCENT AUTO 1 % (0-2); EOSINOPHILS ABSOLUTE AUTO 0.16 K/mm3 (0.00-0.68); EOSINOPHILS PERCENT AUTO 4 % (0-6); Hematocrit 32.2 % (33.0-51.0); Hemoglobin 10.2 g/dL (11.5-16.0); IMMATURE GRAN ABSOLUTE AUTO 0.01 K/mm3 (0.00-0.10); IMMATURE GRAN PERCENT AUTO 0 % (0-1); LYMPHOCYTES ABSOLUTE AUTO 1.05 K/mm3 (0.84-5.20); LYMPHOCYTES PERCENT AUTO 28 % (21-46); MONOCYTES ABSOLUTE AUTO 0.46 K/mm3 (0.16-1.47); MONOCYTES PERCENT AUTO 12 % (4-13); Mean Corpuscular HGB 30.4 pg (26.0-34.0); Mean Corpuscular HGB Conc 31.7 g/dL (31.5-36.5); Mean Corpuscular Volume 96 fL (80-100); Mean Platelet Volume 10.3 fL (9.1-12.4); NEUTROPHILS ABSOLUTE AUTO 2.01 K/mm3 (1.96-9.15); NEUTROPHILS PERCENT AUTO 54 % (41-73); Platelet Count 198 K/mm3 (150-400); RDW Coefficient Variation 14.7 % (11.7-14.2); RDW Standard Deviation 51.6 fL (35.1-46.3); Red Blood Cell Count 3.36 M/mm3 (3.80-5.20); White Blood Cell Count 3.71 K/mm3 (4.00-11.30)
[2021-06-12 04:55] LABS: Anion Gap 6 mmol/L (6-16); Blood Urea Nitrogen 7 mg/dL (8-24); Bun/Creatinine Ratio 12.8 (12.0-20.0); CO2, Blood 28 mmol/L (21-32); Calcium, Blood 9.1 mg/dL (8.5-10.1); Chloride, Blood 109 mmol/L (98-108); Creatinine, Blood 0.55 mg/dL (0.40-1.00); Glomerular Filtration Rate >60 (60-); Glucose, Blood 107 mg/dL (70-99); Potassium, Blood 3.9 mmol/L (3.5-5.5); Sodium, Blood 143 mmol/L (136-145)
--- NOTE | 2021-06-12 04:59 | NUR ---
RESIDENCE LIFE COORDINATOR SUMMARY NO ACUTE CHANGES THIS SHIFT. PT AAOX4 AND PLEASANT. DOES WELL AMBULATING TO BATHROOM. STILL WITH SOME PAIN TO THE R KNEE, MEDICATED WITH PERCOCET AND IBUPROFEN PER EMAR. VSS, WILL CONTINUE TO MONITOR.
[2021-06-12 13:46] LABS: Influenza A, PCR NEGATIVE (NEGATIVE); Influenza B, PCR NEGATIVE (NEGATIVE); Resp Syncytial Virus, PCR NEGATIVE (NEGATIVE); SARS-Cov-2 (COVID-19) PCR, MMC NEGATIVE (NEGATIVE)
--- NOTE | 2021-06-12 16:05 | NUR ---
Patient is a [facility] patient who was transferred to [facility] on 06/04/2021 due to cellulitis of the right knee. Patient is to discharge today- 06/12/2021 to SNF. Notified [facility] ordnance equipment worker (Shahana Mcnamara) of the above. No further interventions required. Cheryl Burgess Referral Liaison
--- NOTE | 2021-06-12 17:12 | NUR ---
REPORT CALLED TO KENDY AT [facility]. VSS ON RA, TOLERATING PO INTAKE, VOIDING WELL, AMBULATING IND TO BATHROOM. PAIN REPORTED TO BE TOLERABLE AT 06/22. GAUZE & MT WRAP TO R KNEE, C/D/I. RX SENT W/ DISCHARGE PACKET W/ TRANSPORTER. TRANSPORTED VIA W/C W/ [facility].
== END 2021-06-12 18:37 | DRG 486 ==
LOC: ER 19:33 → SURS 19:34
PROVIDERS: Hospitalist; Internal Medicine; Orthopaedic Surgery; Pharmacist; Physician Assistant; ADMIT Internal Medicine
PROC: 0SUV09Z Supplement Right Knee Joint, Tibial Surface with Liner, Open Approach (ICD-10-PCS; 2021-06-06)
PROC: 0MBN0ZZ Excision of Right Knee Bursa and Ligament, Open Approach (ICD-10-PCS; 2021-06-06)
PROC: 0SPC09Z Removal of Liner from Right Knee Joint, Open Approach (ICD-10-PCS; principal; 2021-06-06 07:30)
PROC: 3E03329 Introduction of Other Anti-infective into Peripheral Vein, Percutaneous Approach (ICD-10-PCS; 2021-06-07)
PROC: 06HY33Z Insertion of Infusion Device into Lower Vein, Percutaneous Approach (ICD-10-PCS; 2021-06-09)
DX: T84.53XA Infection and inflammatory reaction due to internal right knee prosthesis, initial encounter (principal); L03.115 Cellulitis of right lower limb; Z16.29 Resistance to other single specified antibiotic; I10 Essential (primary) hypertension; D64.9 Anemia, unspecified; E03.9 Hypothyroidism, unspecified; Z95.2 Presence of prosthetic heart valve; F41.9 Anxiety disorder, unspecified; E88.09 Other disorders of plasma-protein metabolism, not elsewhere classified; B95.7 Other staphylococcus as the cause of diseases classified elsewhere; Z88.5 Allergy status to narcotic agent; Z88.8 Allergy status to other drugs, medicaments and biological substances; Z90.710 Acquired absence of both cervix and uterus; Z98.890 Other specified postprocedural states; Z87.891 Personal history of nicotine dependence; Z79.899 Other long term (current) drug therapy
CPT/HCPCS: 0241U; 36415; 36569; 73630; 73701; 76882; 80048; 80053; 80202; 81003; 82131; 82140; 82340; 82436; 82507; 82565; 82570; 83605; 83735; 83935; 83945; 84105; 84133; 84300; 84392; 84560; 85025; 85651; 86140; 87040; 89051; 89060; 94660; 94760; 94762; 96365; 96366; 96375; 96376; 97110; 97116; 97161; 97530; 97530-CQ; 99284-25; A9270; C1751; C1776; G0378; J0171; J0696; J0735; J1100; J1650; J1885; J2250; J2370; J2405; J2704; J2795; J3010; J3260; J3370; J7030; J7050; J7120; Q9967

== ENCOUNTER 2021-07-19 05:40 | Inpatient (IN) | payer MEDICARE ==
[~2021-07-19] VITALS: Ht 162.6 cm; Wt 54.5 kg
[~2021-07-19 05:40] MED LIST changes: +EUTHYROX25 MCG PO; -LEVOTHYROXINE PO
[2021-07-19 06:21] LABS: BASOPHILS ABSOLUTE AUTO 0.04 K/mm3 (0.00-0.23); BASOPHILS PERCENT AUTO 1 % (0-2); EOSINOPHILS ABSOLUTE AUTO 0.11 K/mm3 (0.00-0.68); EOSINOPHILS PERCENT AUTO 1 % (0-6); Hematocrit 46.7 % (33.0-51.0); Hemoglobin 13.4 g/dL (11.5-16.0); IMMATURE GRAN ABSOLUTE AUTO 0.36 K/mm3 (0.00-0.10); IMMATURE GRAN PERCENT AUTO 4 % (0-1); LYMPHOCYTES ABSOLUTE AUTO 4.63 K/mm3 (0.84-5.20); LYMPHOCYTES PERCENT AUTO 55 % (21-46); MONOCYTES ABSOLUTE AUTO 0.83 K/mm3 (0.16-1.47); MONOCYTES PERCENT AUTO 10 % (4-13); Mean Corpuscular HGB Conc 28.7 g/dL (31.5-36.5); Mean Corpuscular Volume 105 fL (80-100); Mean Platelet Volume 10.8 fL (9.1-12.4); NEUTROPHILS ABSOLUTE AUTO 2.41 K/mm3 (1.96-9.15); NEUTROPHILS PERCENT AUTO 29 % (41-73); NRBC ABSOLUTE 0.26 K/mm3 (0.00-0.02); NRBC Auto 3.1 /100 WBC (0.0-0.2); Platelet Count 172 K/mm3 (150-400); RDW Coefficient Variation 14.1 % (11.7-14.2); RDW Standard Deviation 55.2 fL (35.1-46.3); Red Blood Cell Count 4.46 M/mm3 (3.80-5.20); White Blood Cell Count 8.38 K/mm3 (4.00-11.30)
[2021-07-19 06:55] LABS: Alanine Aminotransfer (ALT/SGP 26 U/L (12-78); Albumin, Blood 3.4 g/dL (3.4-5.0); Albumin/Globulin Ratio 1.1 (0.8-1.8); Alk Phos 143 U/L (50-136); Anion Gap 13 mmol/L (6-16); Aspartate Aminotrans (AST/SGOT 30 U/L (12-37); Bilirubin, Total 0.3 mg/dL (0.1-1.0); Blood Urea Nitrogen 14 mg/dL (8-24); Bun/Creatinine Ratio 23.3 (12.0-20.0); CO2, Blood 20 mmol/L (21-32); Calcium, Blood 9.3 mg/dL (8.5-10.1); Chloride, Blood 114 mmol/L (98-108); Glomerular Filtration Rate >60 (60-); Glucose, Blood 154 mg/dL (70-99); Potassium, Blood 3.9 mmol/L (3.5-5.5); Sodium, Blood 147 mmol/L (136-145); Total Protein, Blood 6.4 g/dL (6.4-8.2)
--- NOTE | 2021-07-19 09:43 | NUR ---
PT ARRIVED TO UNIT AT 0929, PT VENTED AC/VC 14/400/40%/5, ON 50 OF PROPOFOL, 100ML/HR NS INFUSING, TRANSVENOUS PACER SET AT A RATE OF 50, OUTPUT 5.0 AND A SENSE OF 0.4.
[2021-07-19] MEDS ORDERED: DOCU100 PO (15:31)
[2021-07-19] MEDS ORDERED: DULCOLAX400 MG/5 M PO (15:35)
[2021-07-19] MEDS ORDERED: PARO20 PO (16:48)
[2021-07-19] MEDS ORDERED: Percocet 5-3251 EACH PO (16:48)
--- NOTE | 2021-07-19 19:00 | NUR ---
ASSUMED CARE ASSUMED CARE OF PATIENT. REMAINS INTUBATED- AC/VC+ 14/400/5/30%. RR 14. SEDATED WITH PROPOFOL AT 40MCG/KG/MIN. FACIAL GRIMACING NOTED WITH ANY STIMULATION. WITHDRAWS RLE TO STIMULI. NO OTHER SPONTANEOUS MOVEMENT NOTED. BILATERAL SOFT WRIST RESTRAINTS IN PLACE TO PREVENT SELF-EXTUBATION. MONITOR SHOWS SR, OCCASIONALLY IRREGULAR. ALSO NOTED INFREQUENT PACED BEATS. TRANSVENOUS PACEMAKER IN PLACE TO LEFT FEMORAL- SET AT 50BPM, OUTPUT 5.0. SEMSE 0.4. FEMORAL SITE IS CLEAR. BP STABLE. OG TO LIS WITH SMALL AMOUNT OF BILE DRAINAGE. CARTAGENA PATENT AND DRAINING TO GRAVITY- CLEAR YELLOW URINE. RIGHT KNEE INCISION/SWELLING NOTED. ICE IN PLACE TO KNEE. FAMILY AT BEDSIDE. KAYLIE PICC NOTED. SEE SHIFT ASSESSMENT FOR FULL ASSESSMENT.
--- NOTE | 2021-07-19 22:20 | NUR ---
SEDATION VACATION PROPOFOL DECREASED TO 25MCG/KG/MIN AT 2145 TO ASSESS NEUROLOGICAL STATUS. AT 2215, PT OPENS EYES SPONANEOUSLY. MOVES ALL EXTREMITIES SPONTANEOUSLY AND TO COMMANDS. ELECTRICAL TEST TECHNICIAN EQUAL BILATERALLY. FOLLOWS SIMPLE COMMANDS. PROPOFOL INCREASED BACK TO 40MCG/KG/MIN WHEN PATIENT BEGAN COUGHING AND GAGGING.
[2021-07-20 03:50] LABS: BASOPHILS ABSOLUTE AUTO 0.01 K/mm3 (0.00-0.23); BASOPHILS PERCENT AUTO 0 % (0-2); EOSINOPHILS ABSOLUTE AUTO 0.04 K/mm3 (0.00-0.68); EOSINOPHILS PERCENT AUTO 1 % (0-6); Hematocrit 36.8 % (33.0-51.0); Hemoglobin 11.6 g/dL (11.5-16.0); IMMATURE GRAN ABSOLUTE AUTO 0.03 K/mm3 (0.00-0.10); IMMATURE GRAN PERCENT AUTO 0 % (0-1); LYMPHOCYTES ABSOLUTE AUTO 0.82 K/mm3 (0.84-5.20); LYMPHOCYTES PERCENT AUTO 11 % (21-46); MONOCYTES ABSOLUTE AUTO 0.82 K/mm3 (0.16-1.47); MONOCYTES PERCENT AUTO 11 % (4-13); Mean Corpuscular HGB 30.1 pg (26.0-34.0); Mean Corpuscular HGB Conc 31.5 g/dL (31.5-36.5); Mean Platelet Volume 10.7 fL (9.1-12.4); NEUTROPHILS ABSOLUTE AUTO 6.07 K/mm3 (1.96-9.15); NEUTROPHILS PERCENT AUTO 78 % (41-73); Platelet Count 141 K/mm3 (150-400); RDW Coefficient Variation 14.2 % (11.7-14.2); Red Blood Cell Count 3.85 M/mm3 (3.80-5.20); White Blood Cell Count 7.79 K/mm3 (4.00-11.30)
[2021-07-20 04:10] LABS: Mean Corpuscular Volume 96 fL (80-100)
[2021-07-20 04:13] LABS: Anion Gap 6 mmol/L (6-16); Blood Urea Nitrogen 10 mg/dL (8-24); Bun/Creatinine Ratio 20.9 (12.0-20.0); CO2, Blood 26 mmol/L (21-32); Calcium, Blood 8.6 mg/dL (8.5-10.1); Chloride, Blood 108 mmol/L (98-108); Creatinine, Blood 0.48 mg/dL (0.40-1.00); Glomerular Filtration Rate >60 (60-); Glucose, Blood 118 mg/dL (70-99); Magnesium, Blood 1.8 mg/dL (1.6-2.4); Potassium, Blood 3.1 mmol/L (3.5-5.5); Sodium, Blood 140 mmol/L (136-145)
--- NOTE | 2021-07-20 06:26 | NUR ---
SHIFT SUMMARY NO ACUTE CHANGES. REMAINS INTUBATED- VENT SETTINGS AC/VC+ 14/400/5, FIO2 30%. RR 14-18. SEDATED WITH PROPOFOL BETWEEN 25-40MCG/KG/MIN- NOW INFUSING AT 40MCG/KG/MIN. DURING PT SEDATION, PT DOES FOLLOW SIMPLE COMMANDS. MOVES ALL EXTREMITIES WEAKLY, BUT HAND MOUNTER AND MOVEMENT ARE EQUAL. BILATERAL SOFT WRIST RESTRAINTS IN PLACE. MEDICATED WITH FENTANYL 25MCG IV X 3 DOSES FOR FACIAL GRIMACING. VSS. SBP OCCASIONALLY ELEVATED WHEN PT IS IN PAIN. TRANSVENOUS PACEMAKER IN PLACE TO LEFT FEMORAL- SITE IS CLEAR, SAME SETTINGS. INFREQUENT PACED BEAT NOTED. OG TO LIS T/O MOST OF NOC WITH SMALL AMOUNT OF GREEN DRAINAGE. OG IS NOW CLAMPED FOR MEDICATION ADMINISTRATION. CARTAGENA PATENT AND DRAINING TO GRAVITY. TMAX 99.3F. NO SEIZURE ACTIVITY NOTED. HEAD CT DONE THIS AM. WILL REPORT TO ONCOMING RN WHEN AVAILABLE.
[2021-07-20] MEDS ORDERED: BISA10S PR (10:03)
[2021-07-20] MEDS ORDERED: FEROSUL325 M1 PO (10:05)
[2021-07-20] MEDS ORDERED: METAMUCIL POWD798 GM PO (10:08)
[2021-07-20] MEDS ORDERED: ONDA4 PO (10:09)
[2021-07-20] MEDS ORDERED: PROBIOTIC1 EA13 PO (10:12)
[2021-07-20] MEDS ORDERED: RIFA300 PO (10:13)
[2021-07-20] MEDS ORDERED: SENN187 PO (10:13)
[2021-07-20] MEDS ORDERED: Vancomycin1 GM/2501 IV (10:14)
--- NOTE | 2021-07-20 10:58 | NUR ---
PT WAS PLACED ON SBT THIS AM WITH SEDATION OFF. PT IS FOLLOWING COMMANDS, NODDING HEAD YES AND NO APPROPRIATELY, AND TOLERATING WEAN. HAS SOME PAIN IN THROAT FROM ETT, FENTANYL WAS GIVEN. AT 1050 PT WAS EXTUBATED TO 4L NC. PT IS TOLERATING WELL, NO SIGN OF DISTRESS. DR. JOSEPH AT BEDSIDE TALKING WITH PT AND FAMILY ABOUT PLAN OF CARE REGARDING PACEMAKER PLACEMENT.
--- NOTE | 2021-07-20 17:15 | NUR ---
SUMMARY PT WAS EXTUBATED THIS AM AT 1050. PT IS ORIENTED TO SELF, FAMILY, AND FOLLOWING COMMANDS. FORGETFUL ABOUT EVENTS THAT LED TO HER ADMIT. AFTER EXTUBATION PT C/O PAIN IN HIPS, KNEE, R WRIST, NECK, AND BACK. FENTANYL WAS NOT WORKING WELL. BP AND HR INCREASED AND PT WAS MOANING. DR. PURI ORDERED PERCOCET AND PT PASSED BEDSIDE SWALLOW. TOOK PILL WITHOUT DIFFICULTY. SPOKE WITH DR. JOSEPH ABOUT GETTING TORADOL ORDERED AND SHE WAS OK WITH THAT. PT WAS GIVEN 15MG OF TORADOL AND WAS ABLE TO REST AFTERWARD. SPOKE WITH DR. KENYON ABOUT R WRIST PAIN, XRAY ORDERED FOR THAT WELL. SUPPORTIVE FAMILY AT BEDSIDE. NO SIGN OF DISTRESS.
--- NOTE | 2021-07-20 19:15 | NUR ---
ASSUMED CARE PATIENT LYING IN BED AWAKE VISITING WITH FAMILY AT BEDSIDE. PATIENT TRACKS TO SOUND AND C/O PAIN IN RT WRIST AT THIS TIME-REQUESTING PAIN MEDICATION. TRANSVENOUS PACER TO LT GROIN W/ SETTINGS: RATE 50, OUTPUT 5, SENSITIVITY 0.4. SINUS RHYTHM W/ RATE IN 80'S. CARTAGENA PATENT AND DRAINING TO GRAVITY. NS TKO INF TO [facility] PICC. REPORT COMPLETED WITH CLYDE FULLER.
[2021-07-21 03:27] LABS: BASOPHILS ABSOLUTE AUTO 0.01 K/mm3 (0.00-0.23); BASOPHILS PERCENT AUTO 0 % (0-2); EOSINOPHILS ABSOLUTE AUTO 0.04 K/mm3 (0.00-0.68); EOSINOPHILS PERCENT AUTO 1 % (0-6); Hematocrit 35.5 % (33.0-51.0); Hemoglobin 11.3 g/dL (11.5-16.0); IMMATURE GRAN ABSOLUTE AUTO 0.02 K/mm3 (0.00-0.10); IMMATURE GRAN PERCENT AUTO 0 % (0-1); LYMPHOCYTES ABSOLUTE AUTO 0.94 K/mm3 (0.84-5.20); LYMPHOCYTES PERCENT AUTO 12 % (21-46); MONOCYTES ABSOLUTE AUTO 0.94 K/mm3 (0.16-1.47); MONOCYTES PERCENT AUTO 12 % (4-13); Mean Corpuscular HGB 30.2 pg (26.0-34.0); Mean Corpuscular HGB Conc 31.8 g/dL (31.5-36.5); Mean Corpuscular Volume 95 fL (80-100); Mean Platelet Volume 10.4 fL (9.1-12.4); NEUTROPHILS ABSOLUTE AUTO 5.64 K/mm3 (1.96-9.15); NEUTROPHILS PERCENT AUTO 74 % (41-73); Platelet Count 124 K/mm3 (150-400); RDW Coefficient Variation 13.8 % (11.7-14.2); RDW Standard Deviation 48.8 fL (35.1-46.3); Red Blood Cell Count 3.74 M/mm3 (3.80-5.20); White Blood Cell Count 7.59 K/mm3 (4.00-11.30)
[2021-07-21 03:40] LABS: Anion Gap 5 mmol/L (6-16); Blood Urea Nitrogen 8 mg/dL (8-24); Bun/Creatinine Ratio 14.8 (12.0-20.0); CO2, Blood 26 mmol/L (21-32); Calcium, Blood 8.3 mg/dL (8.5-10.1); Chloride, Blood 110 mmol/L (98-108); Creatinine, Blood 0.54 mg/dL (0.40-1.00); Glomerular Filtration Rate >60 (60-); Glucose, Blood 109 mg/dL (70-99); Magnesium, Blood 1.7 mg/dL (1.6-2.4); Phosphorus, Blood 2.9 mg/dL (2.5-4.9); Potassium, Blood 3.3 mmol/L (3.5-5.5); Sodium, Blood 141 mmol/L (136-145)
--- NOTE | 2021-07-21 06:09 | NUR ---
SHIFT SUMMARY NO MAJOR EVENTS DURING THE NIGHT. PATIENT SLEPT WELL, BUT DID NOT USE CALL LIGHT D/T "FORGETTING HOW TO USE IT". POTASSIUM LAB LOW THIS AM AT 3.3-KCL 20MEQ IV X [address] BESS. BED BATH, CATHETER CARE, AND LINEN CHANGE COMPLETED AT BEGINNING OF SHIFT. NEURO: A&O X 2, KNOWS SELF, FAMILY, FOLLOWING DIRECTIONS BUT DOES NOT KNOW YEAR-STATES 2020-OR PRESIDENT-STATES "I DON'T KNOW HIS NAME BUT I DON'T LIKE HIM". AFEBRILE DURING SHIFT. JOINTS STIFF, REQUIRED 2 DOSES OF TORADOL 15MG IV AND ONE DOSE OF PERCOCET. RESP: CLEAR T/O SHIFT, DIM IN BASES. PROVIDED SMALL SPUTUM SAMPLE AND SENT TO LAB. RED IN RED IN COLOR. 1LPM VIA NC IN PLACE WITH SPO2 98-100%. ATTEMPTED TO TITRATE OFF THIS MORNING AND PATIENT WOULD DESAT TO MID 80'S. CARDIAC: TRANSVENOUS PACER STILL IN PLACE TO LT GROIN. SETTINGS: RATE 50/ OUTPUT 5/ SENSITIVITY 0.4. NO PACED BEATS DURING NIGHT. STRONG SHENA RADIAL PULSES, FAINT SHENA PEDAL AND TIBIAL PULSES. SINUS RHYTHM W/ RATE 70'S-90'S, UP TO 100'S WHEN IN PAIN. BP ON THE HIGHER SIDE. GI/: WATER PROVIDED T/O SHIFT. PATIENT TOLERATED WELL WITH NO EPISODES OF CHOKING OR COUGHING. ABLE TO TAKE PO MEDS ADEQUATELY. CARTAGENA DRAINED 1050ML DARK YELLOW/ORAGNE CLOUDY URINE.
--- NOTE | 2021-07-21 07:50 | NUR ---
ASSUMED CARE / DR SANFORD: REPORT RECEIVED FROM STEVEN Christine RN. ASSUMED CARE OF THIS PT AT APPROX 0700. ON ASSESSMENT, THE PT IS AWAKE, A&O TO ALL. SHE HAS C/O "STIFF JOINT" PAIN & RIB PAIN S/P CPR. LS ARE DIM IN BASES, PT REMINDED TO COUGH/ DEEP BREATHE OFTEN. CURRENTLY ON 1L NC W/ O2 SATS > 95%. MONITOR SHOWS SR W/ HR 80s, BP STABLE. TV PACER IN PLACE TO LEFT GROIN, SETTINGS: 50 BPM, 5.0 MA & 0.4 MV SENSITIVITY - SITE WNL, SURROUNDING TISSUE SOFT TO PALPATION. THE PT STS BEING THIRSTY & HAVING DRY MOUTH, OTHERWISE NO GI COMPLAINTS. CARTAGENA PATENT/ DRAINING DARK YELLOW, CLOUDY URINE. SKIN CONDITION OVERALL INTACT, Q2H REPOSITIONING TO MAINTAIN SKIN INTEGRITY. DR SANFORD AT BEDSIDE THIS AM TO EVAL PT. SHE PLANS TO SPEAK W/ DR MCKEON, WHO WILL BE PLACING THE PERMANENT PACER, TO DETERMINE WHEN THIS MIGHT OCCUR. SHE STS THAT IT WILL NOT OCCUR TODAY, THERE IS STILL CONCERN FOR INFECTION IN THE PREVIOUSLY SEPTIC RIGHT KNEE THAT HAS NOT BEEN RULED OUT. WILL CONTINUE TO MONITOR & UPDATE NEEDED.
--- NOTE | 2021-07-21 08:30 | NUR ---
DR PURI: PROVIDER AT BEDSIDE TO EVAL PT THIS AM. ORDERS PLACED FOR PT TO HAVE A DIET & BREAKFAST TRAY ORDERED. NO OTHER CHANGES AT THIS TIME.
[2021-07-21 10:20] LABS: Vancomycin, Trough 14.9 ug/mL (5.0-10.0)
--- NOTE | 2021-07-21 14:47 | NUR ---
DR MEDRANO / UPDATE: PROVIDER AT BEDSIDE THIS AFTERNOON TO EVAL PT. HE HAS SPOKEN W/ THE PT & HER FAMILY AT BEDSIDE REGARDING PLAN OF CARE. HE STS THAT HE WILL BE CONTINUING IV ABX FOR APPROX 1 MORE WEEK, & THEN TRANSITIONING THE PT TO PO ABX FOR APPROX THE NEXT 6 MONTHS. HE IS CONCERNED THAT THE PT HAS C/O RIGHT CALF CRAMPING/PAIN THIS AFTERNOON & WOULD LIKE THIS RN TO SPEAK W/ DR MELISSA REGARDING COMPLETING AN US TO RULE OUT DVT A POSSIBLE CAUSE. THIS RN HAS SPOKEN W/ DR MELISSA & ORDERS PLACED FOR VENOUS DUPLEX SCAN OF RLE.
--- NOTE | 2021-07-21 17:33 | NUR ---
DR SANFORD / SHIFT SUMMARY: PROVIDER IN UNIT TO NOTIFY PT & THIS RN THAT SHE WILL RECEIVE A PERMANENT PACER TOMORROW. THE PT HAS PROVIDED CONSENT TO THIS PROCEDURE W/ HER SON AT BEDSIDE. ALL QUESTIONS ANSWERED & THEY HAVE VERBALIZED UNDERSTANDING OF THIS PROCEDURE. CONSENT PLACED ON CHART.
--- NOTE | 2021-07-21 17:38 | NUR ---
DR SANFORD / SHIFT SUMMARY: PROVIDER IN UNIT TO NOTIFY PT & THIS RN THAT SHE WILL RECEIVE A PERMANENT PACER TOMORROW. THE PT HAS PROVIDED CONSENT TO THIS PROCEDURE W/ HER SON AT BEDSIDE. ALL QUESTIONS ANSWERED & THEY HAVE VERBALIZED UNDERSTANDING OF THIS PROCEDURE. CONSENT PLACED ON CHART. PT TO BE NPO AFTER MN, SIGN PLACED ON DOORWAY OF ICU-O7. NO ACUTE CHANGES SINCE PRIOR UPDATES. PT REMAINS A&O, PLEASANT & COOPERATIVE. SHE HAS CONTINUED C/O PAIN IN HER RIBS/ STERNUM THAT IS EXACERBATED W/ COUGHING/ DEEP BREATHING. PAIN IMPROVED W/ REPOSITIONING/ REST. LS ARE CLEAR T/O, DIM IN BASES. PT ON 1L NC W/ O2 SATS > 95%. MONITOR SHOWS SR W/ HR 80s, HTN INCREASED W/ PAIN. TV PACER IN PLACE TO LEFT GROIN W/ SETTINGS: 50 BPM, 5 MA & 0.4 MV, NOTED TO BE PACING 2-3x PER MINUTE WHILE PT AT REST. PT TOLERATING PO INTAKE WELL W/ NO GI COMPLAINTS. CARTAGENA PATENT/ DRAINING YELLOW URINE W/ DIURESIS THIS SHIFT - SEE I&O. SKIN CONDITION OVERALL INTACT, Q2H REPOSITIONING TO MAINTAIN SKIN INTEGRITY. WILL CONTINUE TO MONITOR & REPORT OFF TO ONCOMING RN.
--- NOTE | 2021-07-21 19:00 | NUR ---
ASSUMED CARE OF PT@1900 PT IS A&O X4, PT IS VOCALIZING PAIN AT NUMBER SCALE OF 7 IN HER CHEST/WRISTS/FEET, TORADOL GIVEN IV, PICC LINE PRESENT AND OUT TO 12CM, TKO NS 10MLS/HR, CARTAGENA PATENT AND DRAINING YELLOW URINE, NC @1L, SPO2 >94%, HR70s, SBP 140-190s, TRANSVENOUS PACER IN LEFT GROIN RATE 50/OUTPUT 5/SENSITIVY 0.4, SKIN INTACT WITH SCATTERED BRUISING. SEE FULL ASSESSMENT.
--- NOTE | 2021-07-21 21:00 | NUR ---
PROPOFOL LOWERED TO 30MCG/KG/MIN TO EVALUATE NEUROLOGIC STATUS. PT DOES NOT FOLLOW COMMANDS. PULLS ON RESTRAINTS. MOVES HEAD. ATTEMPTS TO OPEN EYES. MOVES LEGS. PROPFOL RETURNED TO 40MCG/KG/MIN
--- NOTE | 2021-07-22 01:30 | NUR ---
PT HOME CPAP STOPPED WORKING AND WOULD NOT TURN BACK ON. RT CALLED AND REPLACED IT. PT SPO2 REMAINS >92% DURING TRANSITION ON RA.
[2021-07-22 05:03] LABS: BASOPHILS ABSOLUTE AUTO 0.01 K/mm3 (0.00-0.23); BASOPHILS PERCENT AUTO 0 % (0-2); EOSINOPHILS ABSOLUTE AUTO 0.16 K/mm3 (0.00-0.68); EOSINOPHILS PERCENT AUTO 2 % (0-6); Hematocrit 35.9 % (33.0-51.0); Hemoglobin 11.5 g/dL (11.5-16.0); IMMATURE GRAN ABSOLUTE AUTO 0.02 K/mm3 (0.00-0.10); IMMATURE GRAN PERCENT AUTO 0 % (0-1); LYMPHOCYTES PERCENT AUTO 20 % (21-46); MONOCYTES ABSOLUTE AUTO 0.82 K/mm3 (0.16-1.47); MONOCYTES PERCENT AUTO 12 % (4-13); Mean Corpuscular HGB 30.4 pg (26.0-34.0); Mean Corpuscular Volume 95 fL (80-100); Mean Platelet Volume 10.6 fL (9.1-12.4); NEUTROPHILS PERCENT AUTO 65 % (41-73); Platelet Count 129 K/mm3 (150-400); RDW Coefficient Variation 13.8 % (11.7-14.2); RDW Standard Deviation 48.5 fL (35.1-46.3); Red Blood Cell Count 3.78 M/mm3 (3.80-5.20); White Blood Cell Count 6.91 K/mm3 (4.00-11.30)
[2021-07-22 05:19] LABS: Anion Gap 7 mmol/L (6-16); Blood Urea Nitrogen 12 mg/dL (8-24); Bun/Creatinine Ratio 24.3 (12.0-20.0); CO2, Blood 25 mmol/L (21-32); Calcium, Blood 9.1 mg/dL (8.5-10.1); Chloride, Blood 108 mmol/L (98-108); Creatinine, Blood 0.49 mg/dL (0.40-1.00); Glomerular Filtration Rate >60 (60-); Glucose, Blood 109 mg/dL (70-99); Magnesium, Blood 2.1 mg/dL (1.6-2.4); Phosphorus, Blood 2.5 mg/dL (2.5-4.9); Potassium, Blood 3.6 mmol/L (3.5-5.5); Sodium, Blood 140 mmol/L (136-145)
--- NOTE | 2021-07-22 05:48 | NUR ---
END OF SHIFT SUMMARY NO ACUTE CHANGES THROUGHOUT SHIFT. PT IS PLEASANT AND A&O. PT SLEPT COMFORTABLY MOST OF THE NIGHT. PT HAD SHORT RUN OF SVT @0300. HR 70-80s SR, TRANSVENOUS PACER LEFT GROIN MONITOR SETTINGS 50BPM, 5MA, 0.4MV, SBP 140-160s, SPO2 >94%, PT HAD PAIN IN CHEST/WRIST/FEET THROUGH MOST OF THE SHIFT THAT IMPROVED WITH TORADOL. PT COMPLAINS OF PAIN W/MOVEMENT. PT CPAP STOPPED WORKING MID SHIFT RT REPLACED. NO COMPLAINTS OF ABDOMINAL TENDERNESS. CARTAGENA PATENT AND DRAINING YELLOW URINE. WILL CONTINUE TO MONITOR AND REPORT TO ONCOMING RN
--- NOTE | 2021-07-22 08:30 | NUR ---
ASSUMED CARE / DR BURDEN: REPORT RECEIVED FROM STEVEN Pillai, RN & ENOCH Majano, BUDGET DIRECTOR. ASSUMED CARE OF THIS PT AT APPROX 0700. ON ASSESSMENT, THE PT IS AWAKE, ALERT & ORIENTED TO ALL. SHE STS FEELING BETTER TODAY & SLEPT WELL LAST NIGHT. MENTATION & MOTOR SKILLS CONTINUE IMPROVING. LS ARE CLEAR T/O, PT ON RA W/ O2 SATS > 93%. MONITOR SHOWS SR W/ FREQUENT PACs, HR 70-80s, HTN AT BASELINE. TV PACER IN PLACE TO LEFT GROIN W/ SETTINGS: 50 BPM, 5 MA & 0.4 MV, NO PACER SPIKES SEEN THIS AM ON MONITOR. PT NPO SINCE MN, AM MEDS EXCEPT LISINOPRIL HELD R/T HTN. CARTAGENA PATENT/ DRAINING YELLOW CLOUDY URINE W/ ADEQUATE OUTPUT. SKIN CONDITION OVERALL INTACT, Q2H REPOSITIONING TO MAINTAIN SKIN INTEGRITY. WILL CONTINUE TO MONITOR & UPDATE NEEDED.
[2021-07-22 08:50] LABS: SARS-Cov-2 (COVID-19) PCR, MMC NEGATIVE (NEGATIVE)
--- NOTE | 2021-07-22 09:25 | NUR ---
PERMANENT PACER PLACEMENT: PT OUT OF ROOM W/ [facility] STAFF TO HAVE PERMANENT PACER PLACED AT APPROX 0925. SONS ARE AT BEDSIDE DURING THIS TIME & HAVE GONE TO HC WAITING ROOM WHILE THE PT IS IN SURGERY.
--- NOTE | 2021-07-22 12:07 | NUR ---
RETURN TO ROOM: PT HAS ARRIVED BACK TO ICU-07 AT APPROX 1110. ON ARRIVAL, THE PT IS AWAKE, ALERT & ORIENTED TO ALL. SHE RECEIVED 4 MG VERSED & 100 MCG FENTANYL DURING THE PROCEDURE. PACER PLACED TO LEFT ANTERIOR CHEST WALL. PT STS THE AREA IS "SORE" WITH MOVEMENT OF THE ARM, MOBILITY RESTRICTIONS DISCUSSED & SLING PLACED TO LUE. ICE PACK APPLIED TO SURGICAL SITE PER PROVIDER ORDERS. AM MEDS GIVEN LATE ON RETURN TO ICU. PER DR MCKEON, THE PT IS OKAY TO BE PCU STATUS, THIS RN HAS ALSO OKAY'd THIS W/ DR MELISSA THIS AM. ORDERS PLACED.
--- NOTE | 2021-07-22 17:06 | NUR ---
SHIFT SUMMARY / DR MELISSA: NO ACUTE CHANGES SINCE PT's RETURN FROM HAVING PERMANENT PACER PLACED. SHE HAS TOLERATED MOBILITY RESTRICTIONS WELL & HAS WORKED W/ BOTH PHYSICAL & OCCUPATIONAL THERAPIES THIS AFTERNOON. LS ARE CLEAR T/O, PT ON RA W/ O2 SATS > 92%. MONITOR SHOWS SR W/ HR 70-80s, FREQUENT PACs. PT TOLERATING SMALL AMNTS OF PO INTAKE, STS HAVING A POOR APPETITE STILL. LARGE BM x1 THIS SHIFT. CARTAGENA CATHETER REMOVED AT 1530 PER PT REQUEST & OKAY'd BY DR MELISSA. NO VOID SINCE THAT TIME. SKIN CONDITION OVERALL INTACT, Q2H REPOSITIONING TO MAINTAIN SKIN INTEGRITY. SURGICAL SITE FOR PACER PLACEMENT TO LEFT ANTERIOR CHEST WALL WNL, ICE PACK APPLIED ORDERED & TOLERATED BY PT. PUNCTURE SITE TO LEFT GROIN S/P TV PACER REMOVAL WNL - NO BLEEDING, BRUISING OR HEMATOMA FORMATION NOTED. PROVIDER AT BEDSIDE THIS EVENING TO DISCUSS CODE STATUS W/ THE PT & HER FAMILY. SHE HAS ASKED STAFF WHAT THE "MEANING" OF THE PURPLE DNR WRISTBAND ON HER RIGHT WRIST IS & HAS EXPRESSED CONCERN ABOUT NOT RECEIVING RESUSCITATION MEASURES BASED ON DNR STATUS. DR MELISSA WAS CONTACTED BY THIS RN REGARDING THE ISSUE & PT's POSSIBILY WANTING TO ALTER CODE STATUS ORDERS. HE HAS COME TO BEDSIDE & HAD A LENGTHY DISCUSSION W/ THE PT & HER FAMIYL, THE PT IS NOW FULL CODE STATUS. WILL CONTINUE TO MONITOR & REPORT OFF TO ONCOMING RN.
--- NOTE | 2021-07-22 19:20 | NUR ---
Asssumed care after report recv'd assessment complete. groin site and pacemaker site both wnl and soft, no hematoma noted. requests cough medicine, states today stated would order. no order in computer. advised will call airline station agent hospitalist for orders.
--- NOTE | 2021-07-22 21:40 | NUR ---
report given to TRAY FILLERCLYDE Saldivar. transferred via wheel chair with monitor to PCU 14. handed off care
--- NOTE | 2021-07-23 06:17 | NUR ---
SHIFT SUMMARY ASSUMED CARE OF PT AT 2140, ICU TRANSFER. PT STABLE. AFEBRILE. HR PACED SR 70-80'S. BP STABLE. ON RA SATS OVER 94%. C/O OF PAIN T/O NIGHT. RIBS AND RIGHT LEG AROUND THE KNEE. RIGHT LEG CRAMPING. MANAGED WITH REPOSITIONING, HEATING BLANKET, AND EMAR. SBA FOR ADLS. MULTIPLE TRIPS TO BEDSIDE COMMODE T/O THE NIGHT. IN BED SLEEPING WITH CALL ALARM AT SIDE. WILL CONTINUE TO MONITOR UNTIL REPORT GIVEN TO DAYSHIFT RN
--- NOTE | 2021-07-23 10:47 | NUR ---
ASSUMED CARE OF PT AT 0700. ST CHANGES NOTED BY TELEMETRY APROX 0900, DR MELISSA NOTIFIED, EKG/LAB OBTAINED PER ORDERS. PT DENIES ANY NEW CHEST PAIN OR PRESSURE AT THIS TIME. DR MELISSA STATES HE HAS NOTIFIED CARDIOLOGY. WILL CONTINUE TO MONITOR.
[2021-07-23 10:59] LABS: Albumin, Blood 2.8 g/dL (3.4-5.0); Anion Gap 8 mmol/L (6-16); Blood Urea Nitrogen 10 mg/dL (8-24); CO2, Blood 26 mmol/L (21-32); Calcium, Blood 9.6 mg/dL (8.5-10.1); Chloride, Blood 106 mmol/L (98-108); Creatinine, Blood 0.59 mg/dL (0.40-1.00); Glomerular Filtration Rate 87 (60-); Glucose, Blood 180 mg/dL (70-99); Phosphorus, Blood 2.7 mg/dL (2.5-4.9); Potassium, Blood 3.4 mmol/L (3.5-5.5); Sodium, Blood 140 mmol/L (136-145)
[2021-07-23 15:19] LABS: BASOPHILS ABSOLUTE AUTO 0.01 K/mm3 (0.00-0.23); BASOPHILS PERCENT AUTO 0 % (0-2); EOSINOPHILS ABSOLUTE AUTO 0.14 K/mm3 (0.00-0.68); EOSINOPHILS PERCENT AUTO 3 % (0-6); Hemoglobin 11.9 g/dL (11.5-16.0); IMMATURE GRAN ABSOLUTE AUTO 0.01 K/mm3 (0.00-0.10); IMMATURE GRAN PERCENT AUTO 0 % (0-1); LYMPHOCYTES ABSOLUTE AUTO 0.98 K/mm3 (0.84-5.20); LYMPHOCYTES PERCENT AUTO 18 % (21-46); MONOCYTES ABSOLUTE AUTO 0.64 K/mm3 (0.16-1.47); MONOCYTES PERCENT AUTO 12 % (4-13); Mean Corpuscular HGB 29.5 pg (26.0-34.0); Mean Corpuscular HGB Conc 31.3 g/dL (31.5-36.5); Mean Corpuscular Volume 94 fL (80-100); Mean Platelet Volume 10.7 fL (9.1-12.4); NEUTROPHILS ABSOLUTE AUTO 3.75 K/mm3 (1.96-9.15); NEUTROPHILS PERCENT AUTO 68 % (41-73); Platelet Count 168 K/mm3 (150-400); RDW Coefficient Variation 13.5 % (11.7-14.2); RDW Standard Deviation 47.2 fL (35.1-46.3); Red Blood Cell Count 4.04 M/mm3 (3.80-5.20); White Blood Cell Count 5.53 K/mm3 (4.00-11.30)
--- NOTE | 2021-07-23 18:32 | NUR ---
NO ACUTE EVENTS SINCE LAST CHART NOTE. PT HAS WORKED WITH PT/OT TODAY. UP WALKING IN HALLWAYS WITH 1P SBA AND A CANE. PT HAS HAD FAMILY VISITING HER. PT MEDICATED FOR STERNAL PAIN, DR MELISSA NOTIFIED FOR FURTHER PAIN CONTROL AND ORDERS RECEIVED. POTASSIUM REPLACED PER MD ORDERS. PT IS COMPLYING WITH MOVEMENT RESTRICTIONS TO L ARM. NO FURTHER NEEDS IDENTIFIED THIS SHIFT. CALL LIGHT IN REACH AND FAMILY AT BEDSIDE, PT ABLE TO USE CALL LIGHT APPROPRIATELY. WILL CONTINUE TO MONITOR AND GIVE REPORT TO ONCOMING SHIFT RN.
[2021-07-24 04:03] LABS: BASOPHILS ABSOLUTE AUTO 0.01 K/mm3 (0.00-0.23); BASOPHILS PERCENT AUTO 0 % (0-2); EOSINOPHILS ABSOLUTE AUTO 0.29 K/mm3 (0.00-0.68); EOSINOPHILS PERCENT AUTO 6 % (0-6); Hemoglobin 11.3 g/dL (11.5-16.0); IMMATURE GRAN ABSOLUTE AUTO 0.01 K/mm3 (0.00-0.10); IMMATURE GRAN PERCENT AUTO 0 % (0-1); LYMPHOCYTES ABSOLUTE AUTO 1.09 K/mm3 (0.84-5.20); LYMPHOCYTES PERCENT AUTO 23 % (21-46); MONOCYTES ABSOLUTE AUTO 0.61 K/mm3 (0.16-1.47); MONOCYTES PERCENT AUTO 13 % (4-13); Mean Corpuscular HGB 30.4 pg (26.0-34.0); Mean Corpuscular HGB Conc 32.3 g/dL (31.5-36.5); Mean Corpuscular Volume 94 fL (80-100); Mean Platelet Volume 10.5 fL (9.1-12.4); NEUTROPHILS ABSOLUTE AUTO 2.74 K/mm3 (1.96-9.15); NEUTROPHILS PERCENT AUTO 58 % (41-73); Platelet Count 156 K/mm3 (150-400); RDW Coefficient Variation 13.6 % (11.7-14.2); RDW Standard Deviation 47.1 fL (35.1-46.3); Red Blood Cell Count 3.72 M/mm3 (3.80-5.20); White Blood Cell Count 4.75 K/mm3 (4.00-11.30)
[2021-07-24 04:26] LABS: Albumin, Blood 2.2 g/dL (3.4-5.0); Anion Gap 6 mmol/L (6-16); Blood Urea Nitrogen 10 mg/dL (8-24); Bun/Creatinine Ratio 19.6 (12.0-20.0); CO2, Blood 28 mmol/L (21-32); Calcium, Blood 9.1 mg/dL (8.5-10.1); Chloride, Blood 108 mmol/L (98-108); Creatinine, Blood 0.51 mg/dL (0.40-1.00); Glomerular Filtration Rate 90 (60-); Glucose, Blood 109 mg/dL (70-99); Magnesium, Blood 2.2 mg/dL (1.6-2.4); Phosphorus, Blood 3.4 mg/dL (2.5-4.9); Potassium, Blood 3.3 mmol/L (3.5-5.5); Sodium, Blood 142 mmol/L (136-145)
--- NOTE | 2021-07-24 07:38 | NUR ---
NO ACUTE EVENTS OVERNIGHT. PT REPORTS PAIN CONTROL IS BETTER WITH INCREASE IN PERCOCET DOSE. CONTINUES TO COMPLAIN OF PAIN TO STERNUM AND MID-BACK STATUS POST CPR COMPRESSIONS. EXPECTED SORENESS AT SITE OF PACEMAKER IMPLANTATION, RELIEVED WITH USE OF ICE PACK AND RESTRICTED MOVEMENT, SINUS RHYTHM WITH RARE PACED BEATS AND A RED LEADER BRANCH BLOCK SEEN ON TELEMETRY MONITORING. HYPERTENSION PERSISTS INTO THE 150S SYSTOLIC IN PATIENT WITH UNDERLYING HYPERTENESION. PT REQUIRES OCCASIONAL REMINDERS OF LIMITED USE OF LEFT UPPER EXTREMITY POST SURGERY. APPROPRIATE EDUCATION PROVIDED INCLUDING THAT RESTRICTIONS ARE IN PLACE FOR 28 DAYS POST-OP.
--- NOTE | 2021-07-24 18:30 | NUR ---
NO ACUTE EVENTS T/O THE DAY. PT WORKED WITH PT/OT, UP TO RESTROOM W SBA AND CANE, PAIN WELL CONTROLLED WITH PRN MEDICATIONS. DISCHARGE PLANNING WORKING ON GETTING [facility], PENDING INSURANCE APPROVAL. PT STATES SHE HAS NOT HAD A BM IN 3 DAYS, MIRALAX ORDERED BY DR MELISSA. PT DOES NOT TOLERATE IV POTASSIUM, DID TOLERATE LIQUID POTASSIUM DILUTED IN JUICE. NO FURTHER NEEDS IDENTIFIED AT THIS TIME, PT RESTING IN BED WITH CALL LIGHT IN REACH, WILL CONTINUE TO MONITOR AND GIVE REPORT TO ONCOMING NOC SHIFT RN.
[2021-07-25 04:47] LABS: Albumin, Blood 2.5 g/dL (3.4-5.0); Anion Gap 7 mmol/L (6-16); Blood Urea Nitrogen 10 mg/dL (8-24); Bun/Creatinine Ratio 18.5 (12.0-20.0); CO2, Blood 27 mmol/L (21-32); Calcium, Blood 9.2 mg/dL (8.5-10.1); Chloride, Blood 108 mmol/L (98-108); Creatinine, Blood 0.54 mg/dL (0.40-1.00); Glomerular Filtration Rate 89 (60-); Glucose, Blood 107 mg/dL (70-99); Phosphorus, Blood 3.5 mg/dL (2.5-4.9); Potassium, Blood 4.1 mmol/L (3.5-5.5); Sodium, Blood 142 mmol/L (136-145)
--- NOTE | 2021-07-25 07:15 | NUR ---
NO ACUTE EVENTS OVERNIGHT. PT CONTINUES TO COMPLAIN OF PAIN TO THE STERNUM, MID-BACK AND RIBS STATUS POST CHEST COMPRESSIONS ON 07/19/21. SHE DOES REPORT RELIEF WITH PRN PERCOCET, ICE APPLICATION, AND THE LIDODERM PATCH. PT DID AMBULATE IN THE POST LAST NIGHT. SHE USED HER CANE, WORE A GAIT BELT AND WAS ACCOMPANIED BY STAFF. SHE TOLERATED THAT WELL AND IS ANXIOUS TO AMBULATE MORE DURING THE DAY. SHE PRACTICES GOOD BODY MECHANICS AND RESTRICTED USE OF HER LEFT UPPER EXTREMITY (S/P PERM PACEMAKER PLACEMENT) AND IS MOSTLY INDEPENDENT WITH TRANSFERS.
[2021-07-25 16:21] LABS: Influenza A, PCR NEGATIVE (NEGATIVE); Influenza B, PCR NEGATIVE (NEGATIVE); Resp Syncytial Virus, PCR NEGATIVE (NEGATIVE); SARS-Cov-2 (COVID-19) PCR, MMC NEGATIVE (NEGATIVE)
--- NOTE | 2021-07-25 16:24 | NUR ---
SHIFT SUMMARY Pt is a/o x 4. She has ongoing pain to her sternum and left chest s/p pacemaker placement. She was NSR with some paced beats this morning and when the doctor rounded her changed her status to medical with no tele. Her pacemaker site dressing is CDI and she has had her sling in place all day. She worked with therapies today and is per their report she is [facility]. She wears her CPAP Q HS but maintains her sats in the high 90's on room air during the day. She has yet to have a BM despite the interventions given thus far including the ordered meds along with prune/apple juice. She has also been up walking. She reports that when she takes pain medication she has a history of constipation. Her friend came by for a visit this afternoon and her son was here this morning. She has her personal items in reach and uses her call light when needed.
--- NOTE | 2021-07-25 18:35 | NUR ---
TRANSFER PATIENT TRANSFERED FROM PCU AT 1830. PATIENT SETTLED INTO ROOM. PATIENT ORIENTED TO CALL LIGHT AND ROOM. PATIENT DENIES PAIN, NAUSEA, AND SHORTNESS OF BREATH. PATIENT HAS TRANSPORTATION SCHEDULED FOR 10AM TOMORROW. PATIENT IS RETURNING TO [facility]. PATIENT AWARE OF PLAN. PATIENT IS PLEASANT AND COOPERATIVE WITH CARE.
--- NOTE | 2021-07-26 04:31 | NUR ---
PT IS A/0 X4. PT IS POST OP DAY 4 KENNY PM PLACEMENT. HAS CONTINOUS C/O PAIN IN THE STERNUM AND RIBS. TEMPORARY RELIEF FROM PRN PERCOCET AND TYLENOL IS STATED. PT USES CPAP HS EVEN THOUGH O2 SATS ARE IN THE MID 90'S ON RA. PT HAS TRANSPORTATION ARRANGED FOR 1000 ON 07/26/21 BACK TO [facility]. NO ESOL INSTRUCTOR ORDERS ARE CURRENTLY IN SYSTEM FOR DISCHARGE. PT IS CURRENTLY SLEEPING WITH CPAP ON AND CALL LIGHT WITHIN REACH WITH BED IN LOW POSITION.
[2021-07-26 05:17] LABS: Albumin, Blood 2.9 g/dL (3.4-5.0); Anion Gap 6 mmol/L (6-16); Blood Urea Nitrogen 10 mg/dL (8-24); Bun/Creatinine Ratio 18.5 (12.0-20.0); CO2, Blood 26 mmol/L (21-32); Calcium, Blood 9.7 mg/dL (8.5-10.1); Chloride, Blood 109 mmol/L (98-108); Creatinine, Blood 0.54 mg/dL (0.40-1.00); Glomerular Filtration Rate 89 (60-); Glucose, Blood 115 mg/dL (70-99); Phosphorus, Blood 3.4 mg/dL (2.5-4.9); Potassium, Blood 4.1 mmol/L (3.5-5.5); Sodium, Blood 141 mmol/L (136-145)
--- NOTE | 2021-07-26 06:49 | NUR ---
I AM IN AGREEMENT WITH REHABILITATION AIDE NOTES AND ASSESSMENT
[2021-07-26] MEDS ORDERED: BENZ100A PO (10:41)
[2021-07-26] MEDS ORDERED: FAMO20 PO (10:43)
[2021-07-26] MEDS ORDERED: PAIN RELIEF1 EACH TOP (10:44)
[2021-07-26] MEDS ORDERED: LINE600 PO (10:45)
[2021-07-26] MEDS ORDERED: LISI20 PO (10:46)
[2021-07-26] MEDS ORDERED: AMLO5 PO (10:46)
--- NOTE | 2021-07-26 15:52 | NUR ---
PT TRANSFERED TO [facility] AT 1211 WITH AID ESCORTING TO N ENTRANCE WITH DANCE HALL HOST/HOSTESS VIA WHEELCHAIR. PT AOX4 AND COOPERATIVE OF CARE. PT TREATED FOR PAIN PER EMAR. PT ALSO EXPERIENCING LOOSE BMs DUE TO PREVIOUS BM CARE YESTERDAY PT HAD NOT HAD A BM IN 5 DAYS PRIOR. PT WAS GETTING TIRED HAVING TO GET UP TO COMMODE WITH HER RIB FX CAUSING PAIN. PT HAD INCREASED BP TODAY AND DR PELLETIER ADDED MEDS TO HER EMAR WHICH WERE EFFECTIVE. ALL PERSONAL BELONGS WENT WITH PT NO DISTRESS NOTED.
== END 2021-07-26 12:10 | DRG 242 ==
LOC: ER 05:40 → ICUE 07:40 → ICUW 07:40 → ICUE 09:35 → PCU 07-22 21:42 → MEDS 07-25 18:27
PROVIDERS: Emergency Medicine; Internal Medicine; Internal Medicine Cardiovascular Disease; Internal Medicine Critical Care Medicine; Orthopaedic Surgery; ADMIT Family Medicine
PROC: 0BH17EZ Insertion of Endotracheal Airway into Trachea, Via Natural or Artificial Opening (ICD-10-PCS; principal; 2021-07-19)
PROC: 5A12012 Performance of Cardiac Output, Single, Manual (ICD-10-PCS; 2021-07-19)
PROC: 5A1935Z Respiratory Ventilation, Less than 24 Consecutive Hours (ICD-10-PCS; 2021-07-19)
PROC: 02H63JZ Insertion of Pacemaker Lead into Right Atrium, Percutaneous Approach (ICD-10-PCS; 2021-07-19)
PROC: 02HK3JZ Insertion of Pacemaker Lead into Right Ventricle, Percutaneous Approach (ICD-10-PCS; 2021-07-19)
PROC: 5A1223Z Performance of Cardiac Pacing, Continuous (ICD-10-PCS; 2021-07-19)
PROC: 05HM33Z Insertion of Infusion Device into Right Internal Jugular Vein, Percutaneous Approach (ICD-10-PCS; 2021-07-19)
PROC: 0JH606Z Insertion of Pacemaker, Dual Chamber into Chest Subcutaneous Tissue and Fascia, Open Approach (ICD-10-PCS; 2021-07-22)
PROC: 02HK3JZ Insertion of Pacemaker Lead into Right Ventricle, Percutaneous Approach (ICD-10-PCS; 2021-07-22)
DX: I44.2 Atrioventricular block, complete (principal); J96.01 Acute respiratory failure with hypoxia; I46.2 Cardiac arrest due to underlying cardiac condition; G93.1 Anoxic brain damage, not elsewhere classified; M00.9 Pyogenic arthritis, unspecified; D68.0 Von Willebrand disease; Z20.822 Contact with and (suspected) exposure to COVID-19; M25.551 Pain in right hip; Z66 Do not resuscitate; G89.29 Other chronic pain; R56.9 Unspecified convulsions; E03.9 Hypothyroidism, unspecified; I95.9 Hypotension, unspecified; F03.90 Unspecified dementia, unspecified severity, without behavioral disturbance, psychotic disturbance, mood disturbance, and anxiety; R29.810 Facial weakness; E87.6 Hypokalemia; K59.00 Constipation, unspecified; I47.1 Supraventricular tachycardia; Z96.651 Presence of right artificial knee joint; Z90.710 Acquired absence of both cervix and uterus; Z98.890 Other specified postprocedural states; Z95.2 Presence of prosthetic heart valve; Z88.5 Allergy status to narcotic agent; Z88.6 Allergy status to analgesic agent; Z88.8 Allergy status to other drugs, medicaments and biological substances; Z79.82 Long term (current) use of aspirin; Z79.899 Other long term (current) drug therapy
CPT/HCPCS: 0241U; 31500; 33208; 33210; 36415; 51702; 70450; 71045; 71046; 73110; 73560-RT; 76937; 80048; 80053; 80069; 80202; 82947; 83735; 83880; 84100; 84145; 84443; 84484; 85025; 85651; 86140; 87040; 87070; 87205; 92950; 93005; 93010; 93306; 93971; 94002; 94003; 94660; 94760; 94762; 96374-59; 96375-59; 97110; 97116; 97162; 97166; 97530; 97535; 99152; 99153; 99291-25; A9270; C1769; C1781; C1785; C1894; C1898; C9113; J0330; J0360; J0461; J0690; J1580; J1644; J1885; J1940; J1953; J2060; J2250; J2704; J3010; J3370; J3480; J7030; J7040; J7050; J7060; U0004